=== PATIENT | female | born 1995 | race Caucasian/White ===

== ENCOUNTER 2021-01-22 16:48 | Emergency (ER) | payer MEDICAID, SELFPAY ==
[2021-01-22 17:35] VITALS: BP 130/72; PULSE 88; RESP 24; TEMP 37; O2SAT 96; BMI 67.8
--- NOTE | 2021-01-22 18:24 | HMH.EDUTC ---
[facility] Disposition Clinical Impression: Sinusitis Qualifiers: Sinusitis location: unspecified location Chronicity: unspecified Qualified Code(s): J32.9 - Chronic sinusitis, unspecified Disposition: Home, Self-Care Condition on Discharge: Good Instructions: Sinusitis, DI for Sinusitis, Amoxicillin and Clavulanic Acid Additional Instructions: *Monitor Temp, Over the counter Motrin or Tylenol as directed/as needed Tylenol every 4 hours and Motrin every 6 hours (as long as your family doctor has told you that you can take it) for fever or pain. and straight to ER if unable to lower temp less than 101.0 after medication given *Warm salt water gargles may help to soothe the throat *Throat Lozenges *Warm fluids like tea with honey may help to soothe the throat *Sleep elevated *Humidifier/Vaporizer *Flonase 2 sprays in each nostril daily but be aware that it may take 2-3 days before you notice improvement *Bromfed may cause drowsiness. Know how it effects you (your child) before driving, caring for small child, or sending your child to school. Not other antihistamines/allergy medications while taking bromfed Your throat swab was sent for culture. Those results are typically sent to your primary care. Be sure to follow up in 2-3 days with your family doctor/primary care physician if no improvement so they can review those result and treat if necessary. If you don?t have a primary care doctor, I recommend you get one but in the mean time, you will have to return to a walk in clinic Follow up IMMEDIATELY for new or worsening symptoms or no Noticeable improvement over the next 48-72 hours. 911 for difficulty breathing or swallowing Prescriptions: Amoxicillin/Potassium Clav [Augmentin 875-125 Tablet] 1 tab PO Q12H 7 Days #14 tab Transmission Status: Pending to [facility] Benzonatate [Benzonatate 100mg cap] 100 mg PO TID PRN #15 cap PRN Reason: Cough Transmission Status: Pending to [facility] methylPREDNISolone [Medrol 4mg tab] 4 mg PO DIRECTED #21 tab Transmission Status: Pending to [facility] Referrals: Provider,Referral, [Primary Care Provider] - As needed Time of Disposition: 18:53 Medical Decision Making - Aditya Inquiry Pt receiving controlled substance: No Aditya was queried for this patient: No Vital Signs: 01/22/21 17:35 Temperature 98.6 F Temperature Source Oral Pulse Rate [Right] 88 Respiratory Rate 24 Blood Pressure [Right Arm] 130/72 Blood Pressure Mean [Right Arm] 91 Blood Pressure Source [Right Arm] Automatic Cuff Blood Pressure Position [Right Arm] Sitting 02 Sat by Pulse Oximetry 96 Oxygen Delivery Method Room Air Medical Decision Narrative: Patient states that she has taken augmentin and steriods in the past without complication or reactions [facility] HPI - General Stated complaint: Cough,congestionb runny noser Time Seen by Provider: 01/22/21 18:24 Mode of Arrival: Ambulatory Source of Information: Patient Limitations: No Limitations Description of Symptoms (Recalled from Triage Doc. by RN): PATIENT C/O COUGH, RUNNY NOSE AND NASAL CONGESTION SINCE YESTERDAY HEENT Symptoms (Recalled from RN notes): Yes Resp Symptoms (Recalled from RN notes): Yes Skin Symptoms (Recalled from RN notes): No MS Symptoms (Recalled from RN notes): No Functional Status (Recalled from RN notes): WNL - History of Present Illness Provider Complaint: Patient states that she has been having productive cough at times with sinus congestion and pressure that has contined to get worse since yesterday States that at times she is coughing it up and at times she is not States that today she was still not feeling well so she came in to get checked - Related Data Previous Rx's Medication Instructions Recorded Amoxicillin/Potassium Clav 1 tab PO Q12H 7 Days #14 tab 01/22/21 [Augmentin 875-125 Tablet] Benzonatate [Benzonatate 100mg 100 mg PO TID PRN #15 cap 01/22/21 cap] meth
[2021-01-22 18:58] VITALS: BP 130/72; PULSE 88; RESP 24; TEMP 37; O2SAT 96
== END 2021-01-22 19:03 | disposition home or self-care (01) ==
PROVIDERS: Emergency Provider Nurse Practitioner
DX: J32.9 Chronic sinusitis, unspecified (principal)
CPT/HCPCS: 99202; G0463

== ENCOUNTER 2021-03-18 10:15 | Emergency (ER) | payer MEDICAID, SELFPAY ==
[2021-03-18 11:35] VITALS: BP 145/90; PULSE 125; RESP 22; TEMP 37.4; O2SAT 97; BMI 65.9
[2021-03-18 12:02] LABS: UTC Influenza A Antigen Negative (Negative)
[2021-03-18 12:03] LABS: UTC Influenza B Antigen Negative (Negative)
--- NOTE | 2021-03-18 12:13 | HMH.EDUTC ---
[facility] [place] Clinical Impression: Nausea & vomiting Qualifiers: Vomiting type: unspecified Qualified Code(s): R11.2 - Nausea with vomiting, unspecified Disposition: Home, Self-Care Condition on Discharge: Good Instructions: Nausea and Vomiting-Adult, Ondansetron Additional Instructions: Drink extra fluids with and between meals. If you have difficulty drinking, try very small amounts of water or suck on ice chips. ? Avoid fruit juices, as these do not replace minerals and can actually increase diarrhea. ? Children and adults can use sports drinks to replenish electrolytes. Younger children and infants should use products formulated for children, like oral rehydration solutions. ? Eat food in small amounts and let your stomach recover. ? Get lots of rest. You may feel tired or weak. ? No greasy or fried foods for the next 24-48 hours BRAT diet Bananas Rice Apples and [place] ? Make sure to drink plenty of liquids ? Return if needed ? Straight to ER if any life threatening symptoms ? Zofran as prescribed If your abdominal pain returns or worsens follow up with Family Doctor or go straight to ER ? Follow up with family doctor in the next 48-72 hours if no improvement or any worsening of symptoms You were tested for today for COVID19 your test result should be back in the next 24-48 hours, you may check your results on the [facility] if you have trouble logging on you may call You was given a handout with instructions for Self Quarantine and Self isolation for while you wait on test results and what to do if they are positive If you are positive the Health Dept will be contacting you also Make sure to take your Vitamins Vit. C Vit D and Zinc if you can take them Prescriptions: Ondansetron [Zofran 4mg ODT] 4 mg PO TIDP PRN #12 tab PRN Reason: Nausea And Vomiting [facility] Referrals: Provider,Referral, MD [Primary Care Provider] - Forms: Work/School Release Time of Disposition: 13:26 Medical Decision Making - Aditya Inquiry Pt receiving controlled substance: No Aditya was queried for this patient: No Vital Signs: 03/18/21 11:35 Temperature 99.4 F Temperature Source Oral Pulse Rate [Right Brachial] 125 H Respiratory Rate 22 Blood Pressure [Right Arm] 145/90 H Blood Pressure Mean [Right Arm] 108 Blood Pressure Source [Right Arm] Automatic Cuff Blood Pressure Position [Right Arm] Sitting 02 Sat by Pulse Oximetry 97 Oxygen Delivery Method Room Air - Lab Data Lab results reviewed: Yes: I reviewed the patient's lab results. Lab Results 03/18/21 11:53: Influenza Type A Ag Negative, Influenza Type B Ag Negative Orders (Tests/Meds): ED MEDICATIONS Discontinued Medications Generic Name Dose Route Start Last Admin Trade Name Freq PRN Reason Stop Dose Admin Ondansetron HCl 4 mg 03/18/21 12:19 03/18/21 12:24 Ondansetron 4mg Odt SL 03/18/21 12:20 4 mg ONCE ONE Administration ORDERS Category Date Time Status Covid-19 Nasal PCR ([facility]) Routine Lab 03/18/21 11:53 Received Medical Decision Narrative: Patient states that medication helped with nausea Still denies pain in abdomen at this time Patient educated that if pain in abdomen returned or worsened go straight to the ER and patient agreed [facility] [place] HPI - General Stated complaint: covid symptoms/vomiting Time Seen by Provider: 03/18/21 12:13 Mode of Arrival: Ambulatory Source of Information: Patient Limitations: No Limitations Description of Symptoms (Recalled from Triage Doc. by RN): PATIENT C/O STOMACH PAIN, VOMITING, NAUSEA, BODY ACHES AND COUGH X 2 DAYS HEENT Symptoms (Recalled from RN notes): No Resp Symptoms (Recalled from RN notes): No Skin Symptoms (Recalled from RN notes): No MS Symptoms (Recalled from RN notes): No Functional Status (Recalled from RN notes): WNL - History of Present Illness Provider Complaint: Patient state that she woke up this morning with body ach
[2021-03-18 13:25] VITALS: BP 145/90; PULSE 107; RESP 22; TEMP 37.4; O2SAT 97
[2021-03-18 21:38] LABS: Apearance,Urine Turbid (Clear); Color,Urine Dark Yellow (Yellow); Glucose,Urine (UA) Negative (Negative); Ketones,Urine 15 (Negative); Protein,Urine Negative (Negative); Specific Gravity, Urine 1.025 (1.005-1.030)
[2021-03-18 21:39] LABS: Bilirubin,Urine Negative (Negative); Blood, Urine 2+ (Negative); UTC Leukocyte Esterase,Urine Negative (Negative); UTC Nitrate,Urine Negative (Negative); Urobilinogen,Urine 0.2 EU/dl (0.2)
== END 2021-03-18 13:30 | disposition home or self-care (01) ==
PROVIDERS: Emergency Provider Nurse Practitioner
DX: U07.1 COVID-19 (principal)
CPT/HCPCS: 81003; 87804; 99202; C9803; G0463; U0003; U0005

== ENCOUNTER → 2022-10-13 23:35 | Outpatient (CLI) | payer MEDICAID, SELFPAY ==
[2022-10-13 18:35] LABS: Basophils % 0.4 % (0.1-2.0); Eosinophils # 0.3 K/mm3 (0.0-0.4); Eosinophils % 3.4 % (0.1-12.0); Hematocrit 43.7 % (37.0-47.0); Hemoglobin 13.5 g/dL (12.2-16.2); Lymphocytes # 1.8 K/mm3 (0.7-4.5); Lymphocytes % 24.5 % (10-50); Mean Corpuscular HGB Conc 30.8 g/dL (31.8-35.4); Mean Corpuscular Hemoglobin 27.6 pg (27.0-31.2); Mean Corpuscular Volume 89.3 fl (81-99); Mean Platelet Volume 9.6 fl (7.4-10.4); Monocytes # 0.5 K/mm3 (0.1-1.0); Monocytes % 6.1 % (1.7-9.3); Neutrophils # 4.9 K/mm3 (1.8-7.8); Neutrophils % 65.6 % (37.0-80.0); Platelet Count 310 K/mm3 (142-424); Red Blood Count 4.89 M/mm3 (4.20-5.40); Red Cell Distribution Width 13.8 % (11.5-17.5); White Blood Count 7.5 K/mm3 (4.8-10.8)
[2022-10-13 18:56] LABS: Alanine Aminotransferase 111 U/L (12-78); Albumin Level 3.7 g/dl (3.5-5.0); Albumin/Globulin Ratio 1.2 (1.1-1.8); Alkaline Phosphatase 212 U/L (38-126); Amylase 45 U/L (30-110); Anion Gap 10.2 mEq/L (5-15); Aspartate Amino Transferase 130 U/L (14-36); Bilirubin,Total 0.5 mg/dl (0.2-1.3); Blood Urea Nitrogen 11 mg/dl (7-17); Calcium 8.8 mg/dl (8.4-10.2); Carbon Dioxide 23 mmol/L (22.0-30.0); Chloride 111 mmol/L (98-107); Chol/HDL Ratio 4.4 (1-3.5); Cholesterol 206 mg/dl (140-200); Estimated Glomerular Filt Rate 118 ml/min (>60); GFR (African American) 143 ML/MIN (>60); Globulin 3.1 g/dL (1.3-3.2); Glucose 83 mg/dl (74-100); HDL Cholesterol 47 mg/dl (40-60); Lipase 52 U/L (23-300); Potassium 4.2 mmoL/L (3.5-5.1); Sodium 140 mmol/L (136-145); Total Protein,Serum 6.8 g/dl (6.3-8.2); Triglycerides 119 mg/dl (30-150); VLDL Cholesterol 24 mg/dL (0-40)
[2022-10-13 19:07] LABS: Direct LDL Cholesterol 128.93 mg/dL (100-129)
[2022-10-13 19:13] LABS: T4 (Thyroxine) 11.1 ug/dl (5.53-11.0)
[2022-10-13 19:26] LABS: Thyroid Stimulating Hormone 4.75 uIU/mL (0.465-4.68)
== END ==
LOC: LAB.DROPOF 23:36
PROVIDERS: PCP Emergency Medicine; Visit Provider Emergency Medicine
DX: R10.11 Right upper quadrant pain (principal); R11.2 Nausea with vomiting, unspecified; Z76.89 Persons encountering health services in other specified circumstances
CPT/HCPCS: 80053; 80061; 82150; 83036; 83690; 84436; 84443; 85025

== ENCOUNTER → 2022-10-15 07:09 | Outpatient (CLI) | payer MEDICAID, SELFPAY ==
--- NOTE | 2022-10-15 07:12 | US_ITS ---
FINAL REPORT TECHNIQUE: Multiple transverse and longitudinal images CLINICAL HISTORY: abdominal pain COMPARISON: None FINDINGS: The gallbladder shows gallstones. There is focal dilatation of the common hepatic duct but no evidence of intrahepatic ductal dilatation. No significant wall thickening or pericholecystic fluid is seen. Limited portions of the right liver are unremarkable. Limited portions of the right kidney are unremarkable. IMPRESSION: Cholelithiasis. Extrahepatic duct dilatation, consider MRCP for further evaluation. Reviewed, Interpreted and Dictated by Lemuel Pablo MD Transcribed by Mary Forbes Authenticated and [facility]
[2022-10-16 08:16] LABS: HBsAg Screen Negative (Negative); HCV Ab Non Reactive (Non Reactive); Hep A Ab, IGM Negative (Negative); Hep B Core Ab, IgM Negative (Negative)
== END ==
PROVIDERS: PCP Emergency Medicine; Visit Provider Emergency Medicine
DX: R11.2 Nausea with vomiting, unspecified (principal); R10.9 Unspecified abdominal pain; E66.9 Obesity, unspecified; Z68.44 Body mass index [BMI] 60.0-69.9, adult
CPT/HCPCS: 36415; 76705; 80074

== ENCOUNTER 2022-10-25 22:03 | Emergency (ER) | payer MEDICAID, SELFPAY ==
--- NOTE | 2022-10-25 22:03 | ECG_ITS ---
APPROVED REPORT Exam: Resting ECG HR:121 bpm ECG Measurements Heart Rate 121 AXES OH 163 P 69 QRSd 87 QRS 63 QT 423 T 71 QTc 495 Conclusion SINUS TACHYCARDIA NONSPECIFIC T-WAVE ABNORMALITY ABNORMAL RHYTHM ECG UNCONFIRMED REPORT Electronically signed by : Carlos Vallejo MD 10/26/2022 20:47:16
[2022-10-25 22:04] VITALS: BP 136/97; PULSE 121; RESP 22; TEMP 37; O2SAT 100; BMI 65.9
--- NOTE | 2022-10-25 22:10 | HMH.EDGENADL ---
Discharge Plan Disposition Patient Disposition: Still a Patient Condition: Fair Prescriptions Prescriptions: No Action No Known Home Medications Clinical Impressions Clinical Impression: Choledocholithiasis Instructions Patient Instructions: DI for Acute Abdominal Pain Discharge ED Provider: Luz Swann General Adult HPI <Grisel Rodriguez MD - Last Filed: 10/25/22 22:51> General Chief complaint: Abdominal Pain Stated complaint: abd pain Time Seen by Provider: 10/25/22 22:10 Mode of Arrival: Wheelchair Source of Information: Patient Limitations: No Limitations Description of Symptoms (Recalled from ER Triage Doc. by RN): 27 F presents from home with c/o epigastric pain that radiates up her chest and to her upper back. Patient reports being diagnosed with gallstones last week with her PCP, Dr. Montana, and is scheduled to have an MRI of her stomach this week. Patient reports the pain began this evening approximately 2029 and has gotten more severe as time progressed. Patient has nausea and vomited twice [employer]. History of Present Illness HPI narrative: Patient has a PMHx significant for gallstones, obesity, hypothyroidism who presents to the ED with complaints of abdominal pain and chest pain. Patient reports to the ED with complaints of epigastric and right upper quadrant abdominal pain that radiates up into her chest and into her back. Patient notes that she was diagnosed with gallstones last week with her PCP, Dr. Montana, and is scheduled to have an MRI of her abdomen done this week. Patient notes that the pain had sudden onset around 8:30 PM and has progressively worsened since then. Patient endorses nausea vomiting x2, all nonbloody. Patient describes the abdominal pain as a stabbing, squeezing sensation. Patient also notes that her chest pain is more of a sharp pain and she has mild shortness of breath associated with it. Related Data Home Medications Medication Instructions Recorded Confirmed No Known Home Medications 10/25/22 10/25/22 Allergies Allergy/AdvReac Type Severity Reaction Status Date / Time cephalexin [From Keflex] Allergy Verified 10/13/22 15:20 erythromycin base Allergy Verified 10/13/22 15:20 PFS <Grisel Rodriguez MD - Last Filed: 10/25/22 22:51> [facility] Disclaimer: The information contained in this section may have been updated after the patient was seen, as this information can be updated by other users. Medical History Cholelithiasis Hypothyroidism Obesity Surgical History H/O wisdom tooth extraction H/O: Social History Smoking Status: Never smoker alcohol intake: never substance use type: denies use current occupational status: unemployed Travel in the last 8 weeks: None <Grisel Rodriguez MD - Last Filed: 10/25/22 22:51> ROS Obtained: Yes All systems reviewed & no additional complaints except as documented Physical Exam <Grisel Rodriguez MD - Last Filed: 10/25/22 22:51> General General appearance: alert, in distress and obese Head Head exam: atraumatic, normocephalic and normal inspection Eye Eye exam: Present normal appearance, PERRL and EOMI; Absent scleral icterus or nystagmus ENT ENT exam: Present normal exam, mucous membranes moist and normal external ear exam Neck Neck exam: Present normal inspection, full ROM and trachea midline Chest Chest inspection: Present normal inspection and symmetric chest wall rise; Absent tenderness Respiratory Respiratory exam: Present normal lung sounds bilaterally; Absent respiratory distress, wheezes or accessory muscle use Cardiovascular Cardiovascular exam: Present regular rate, normal rhythm and normal heart sounds Abdominal Exam Abdominal exam: Present soft and tenderness (TTP in epigastrium and RUQ); Absent distention, guardin
[2022-10-25 22:30] LABS: Basophils % 0.2 % (0.1-2.0); Eosinophils # 0.2 K/mm3 (0.0-0.4); Eosinophils % 1.6 % (0.1-12.0); Hematocrit 44.3 % (37.0-47.0); Hemoglobin 14.1 g/dL (12.2-16.2); Lymphocytes # 0.9 K/mm3 (0.7-4.5); Lymphocytes % 7.6 % (10-50); Mean Corpuscular HGB Conc 31.8 g/dL (31.8-35.4); Mean Corpuscular Hemoglobin 28.5 pg (27.0-31.2); Mean Corpuscular Volume 89.8 fl (81-99); Mean Platelet Volume 8.7 fl (7.4-10.4); Monocytes # 0.2 K/mm3 (0.1-1.0); Neutrophils # 10.6 K/mm3 (1.8-7.8); Neutrophils % 88.7 % (37.0-80.0); Platelet Count 352 K/mm3 (142-424); Red Blood Count 4.94 M/mm3 (4.20-5.40); Red Cell Distribution Width 14.1 % (11.5-17.5); White Blood Count 11.9 K/mm3 (4.8-10.8)
[2022-10-25 22:34] LABS: MANUAL DIFFERENTIAL MANUAL DIFFERENTIAL (MANUAL DIFF)
[2022-10-25 22:38] LABS: Alanine Aminotransferase 326 U/L (12-78); Albumin Level 4.5 g/dl (3.5-5.0); Alkaline Phosphatase 506 U/L (38-126); Anion Gap 13.1 mEq/L (5-15); Aspartate Amino Transferase 527 U/L (14-36); Bilirubin,Total 4.3 mg/dl (0.2-1.3); Blood Urea Nitrogen 12 mg/dl (7-17); Calcium 9.1 mg/dl (8.4-10.2); Carbon Dioxide 27 mmol/L (22.0-30.0); Chloride 106 mmol/L (98-107); Creatinine Clearance Estimated 128 mL/min (50-200); Estimated Glomerular Filt Rate 99 ml/min (>60); GFR (African American) 120 ML/MIN (>60); Globulin 4.3 g/dL (1.3-3.2); Glucose 110 mg/dl (74-100); HCG Qualitative, Serum Negative (Negative); Lactic Acid 1.5 mmol/L (0.7-2.1); Lipase 63 U/L (23-300); Potassium 4.1 mmoL/L (3.5-5.1); Sodium 142 mmol/L (136-145); Total Protein,Serum 8.8 g/dl (6.3-8.2)
[2022-10-25 22:42] LABS: D-Dimer 1.05 ug/mL (0.0-0.5)
[2022-10-25 22:59] LABS: Troponin I < 0.01 ng/ml (0.00-0.034)
--- NOTE | 2022-10-25 23:03 | PC.NURSE ---
Attempted IV access via US. Successfully placed 20G in the left AC but while securing line, the vein blew. Notified MD who is at bedside at this time attempting access.
--- NOTE | 2022-10-25 23:03 | PC.NURSE ---
Dr. Swann at BS to attempt u/s guided IV
[2022-10-25 23:14] LABS: Eosinophils % 2 % (0-3); Lymphocytes % 9 % (10-50); Monocytes % 1 % (2-9); Neutrophils % 88 % (42-76); Platelet Estimate Normal; RBC Morphology Normal; Total Cells Counted 100
--- NOTE | 2022-10-25 23:40 | CT_ITS ---
PROCEDURE INFORMATION: Exam: CTA Chest With Contrast Exam date and time: 10/25/2022 11:53 PM Age: 27 years old Clinical indication: Abnormal findings; Abnormal diagnostic tests; Elevated d-dimer; Additional info: Chest pain, + d dimer TECHNIQUE: Imaging protocol: Computed tomographic angiography of the chest with contrast. Exam focused on the arteries. 3D rendering (Not supervised by radiologist): MIP and/or 3D reconstructed images were created by the technologist. Radiation optimization: All CT scans at this facility use at least one of these dose optimization techniques: automated exposure control; mA and/or kV adjustment per patient size (includes targeted exams where dose is matched to clinical indication); or iterative reconstruction. Contrast material: ISOVUE; Contrast volume: 80 ml; Contrast route: INTRAVENOUS (IV); REPORTING DATA: Count of CT and Cardiac NM exams in prior 12 months: This patient has received 0 known CTs and 0 known cardiac nuclear medicine studies in the 12 months prior to the current study. COMPARISON: US GALLBLADDER 10/15/2022 7:13 AM FINDINGS: Pulmonary arteries: Normal. No pulmonary emboli. Aorta: Unremarkable. No aortic aneurysm. No aortic dissection. Lungs: Unremarkable. No consolidation. No masses. Pleural spaces: Unremarkable. No pneumothorax. No pleural effusion. Heart: Unremarkable. No cardiomegaly. No pericardial effusion. Lymph nodes: Unremarkable. No enlarged lymph nodes. Gallbladder and bile ducts: Partially visualized gallbladder distention. Bones/joints: Unremarkable. No acute fracture. Soft tissues: Unremarkable. IMPRESSION: No acute findings.
--- NOTE | 2022-10-25 23:40 | CT_ITS ---
PROCEDURE INFORMATION: Exam: CT Abdomen And Pelvis With Contrast Exam date and time: 10/25/2022 11:53 PM Age: 27 years old Clinical indication: Abdominal pain; Prior surgery; Surgery date: 6+ months; Surgery type: C section; Additional info: Upper abd pain, vomiting TECHNIQUE: Imaging protocol: Computed tomography of the abdomen and pelvis with contrast. Radiation optimization: All CT scans at this facility use at least one of these dose optimization techniques: automated exposure control; mA and/or kV adjustment per patient size (includes targeted exams where dose is matched to clinical indication); or iterative reconstruction. Contrast material: ISOVUE; Contrast volume: 75 ml; Contrast route: IV; REPORTING DATA: Count of CT and Cardiac NM exams in prior 12 months: This patient has received 0 known CTs and 0 known cardiac nuclear medicine studies in the 12 months prior to the current study. COMPARISON: US GALLBLADDER 10/15/2022 7:13 AM FINDINGS: Liver: Normal. No mass. Gallbladder and bile ducts: There is moderate intra and extrahepatic biliary ductal dilatation, the common bile duct measures up to 2 cm. There is an ill-defined solid defect within distal common bile duct (image 45 series 4). Gallbladder is well distended. Pancreas: Normal. No ductal dilation. Spleen: The spleen is enlarged measuring 16.8 cm in greatest AP dimension. Adrenal glands: Normal. No mass. Kidneys and ureters: Normal. No hydronephrosis. Stomach and bowel: Unremarkable. No obstruction. No mucosal thickening. Appendix: No evidence of appendicitis. Intraperitoneal space: Unremarkable. No free air. No significant fluid collection. Vasculature: Unremarkable. No abdominal aortic aneurysm. Lymph nodes: Unremarkable. No enlarged lymph nodes. Urinary bladder: Unremarkable as visualized. Reproductive: Unremarkable as visualized. Bones/joints: Unremarkable. No acute fracture. Soft tissues: Unremarkable. IMPRESSION: 1. Biliary obstruction with presumed gallstone in the distal common bile duct. Further evaluation with ERCP/MRCP may be appropriate. 2. Mild splenomegaly.
--- NOTE | 2022-10-25 23:40 | PC.NURSE ---
Patient is extremely difficult IV stick. Multiple attempts with and without ultrasound with Attending's help.
--- NOTE | 2022-10-25 23:45 | PC.NURSE ---
Pt gone to RAD via wheelchair
--- NOTE | 2022-10-25 23:58 | PC.NURSE ---
Pt returned from RAD
--- NOTE | 2022-10-26 | XR_ITS ---
PROCEDURE INFORMATION: Exam: XR Chest Exam date and time: 10/26/2022 12:06 AM Age: 27 years old Clinical indication: Sternal or substernal pain; Additional info: Cp TECHNIQUE: Imaging protocol: Radiologic exam of the chest. Views: 1 view. COMPARISON: CT ANGIO CHEST PE PROTOCOL 10/25/2022 11:53 PM FINDINGS: Lungs: No acute findings or consolidation. Pleural spaces: No pleural effusion. No pneumothorax. Heart/Mediastinum: No acute findings or cardiomegaly. Bones/joints: No acute findings. IMPRESSION: No acute cardiopulmonary findings.
[2022-10-26 00:07] VITALS: BP 150/97; PULSE 117; O2SAT 93
--- NOTE | 2022-10-26 00:09 | PC.NURSE ---
RAD at for CXR
--- NOTE | 2022-10-26 00:20 | PC.NURSE ---
speaking with Dr. Payne
--- NOTE | 2022-10-26 00:24 | PC.NURSE ---
waiting for return call from [facility]
--- NOTE | 2022-10-26 00:32 | PC.NURSE ---
Pt accepted to [facility] by Dr. Tim
--- NOTE | 2022-10-26 00:54 | PC.NURSE ---
Notified EMS of transfer
--- NOTE | 2022-10-26 00:58 | PC.NURSE ---
Report to CORKY Diaz at [facility]. Awaiting EMS transport
[2022-10-26 01:21] VITALS: BP 143/79; PULSE 118; RESP 19; TEMP 37; O2SAT 99
== END 2022-10-26 01:23 | disposition short-term general hospital (02) ==
PROVIDERS: Emergency Medicine; Emergency Provider Emergency Medicine; PCP Emergency Medicine
DX: R10.13 Epigastric pain (principal); K80.20 Calculus of gallbladder without cholecystitis without obstruction; R07.9 Chest pain, unspecified; E66.9 Obesity, unspecified; E03.9 Hypothyroidism, unspecified
CPT/HCPCS: 71045; 71275; 74177; 80053; 83605; 83690; 84484; 84703; 85007; 85025; 85378; 87040; 87077; 87186; 93005; 96361; 96372; 96374; 96375; 99291; J2405; J2543; Q9967

== ENCOUNTER 2023-03-12 20:02 | Observation (INO) | payer MEDICAID, SELFPAY ==
[2023-03-12] VITALS (10 sets, daily range): BP systolic 118–154; BP diastolic 66–103; PULSE 122–159; RESP 13–30; TEMP 36.7–36.8; O2SAT 96–100; BMI 61.7; BMI 63.6
--- NOTE | 2023-03-12 20:09 | ECG_ITS ---
APPROVED REPORT Exam: Resting ECG HR:131 bpm ECG Measurements Heart Rate 131 AXES NJ 153 P 65 QRSd 80 QRS 57 QT 391 T 40 QTc 468 Conclusion SINUS TACHYCARDIA LOW QRS VOLTAGE IN PRECORDIAL LEADS [QRS DEFLECTION < 1.0 mV IN CHEST LEADS] NONSPECIFIC T-WAVE ABNORMALITY ABNORMAL RHYTHM ECG UNCONFIRMED REPORT Electronically signed by : Carlos Vallejo MD 03/16/2023 09:07:54
--- NOTE | 2023-03-12 20:09 | CT_ITS ---
PROCEDURE INFORMATION: Exam: CTA Chest With Contrast Exam date and time: 03/12/2023 8:59 PM Age: 27 years old Clinical indication: Shortness of breath; Additional info: Hr 145, SOB, cough TECHNIQUE: Imaging protocol: Computed tomographic angiography of the chest with contrast. Exam focused on the arteries. 3D rendering (Not supervised by radiologist): MIP and/or 3D reconstructed images were created by the technologist. Radiation optimization: All CT scans at this facility use at least one of these dose optimization techniques: automated exposure control; mA and/or kV adjustment per patient size (includes targeted exams where dose is matched to clinical indication); or iterative reconstruction. Contrast material: ISOVUE; Contrast volume: 75 ml; Contrast route: INTRAVENOUS (IV); REPORTING DATA: Count of CT and Cardiac NM exams in prior 12 months: This patient has received 2 known CTs and 0 known cardiac nuclear medicine studies in the 12 months prior to the current study. COMPARISON: CT ANGIO CHEST PE PROTOCOL 10/25/2022 11:53 PM FINDINGS: Limitations: Evaluation is limited by suboptimal bolus timing. Pulmonary arteries: No large pulmonary emboli. Aorta: No aortic aneurysm. No aortic dissection. Lungs: No consolidation. No masses. Pleural spaces: No pneumothorax. No pleural effusion. Heart: No cardiomegaly. No pericardial effusion. Lymph nodes: No enlarged lymph nodes. Gallbladder and bile ducts: The gallbladder is absent. No intra or extrahepatic biliary ductal dilation. Pneumobilia. Bones/joints: No acute fracture. Soft tissues: Unremarkable. IMPRESSION: 1. No large pulmonary embolism given limitations as above. 2. Other findings as above.
--- NOTE | 2023-03-12 20:15 | HMH.EDGENADL ---
Discharge Plan Disposition Patient Disposition: Home, Self-Care Clinical Impressions Clinical Impression: Sepsis, Acute lower respiratory infection Discharge ED Provider: Esvin Altamirano General Adult HPI General Chief complaint: Shortness of Breath/Dyspnea Stated complaint: cough, congestion Time Seen by Provider: 03/12/23 20:03 Mode of Arrival: Ambulatory Source of Information: Patient Limitations: No Limitations Description of Symptoms (Recalled from ER Triage Doc. by RN): 27YF with complaints of whezzing and chest congestion for the last weeks, accompained with a wet hacking cough and SOB. Patient states it has progressively gotten worse for the last 2 days. Patient denies any fevers. History of Present Illness HPI narrative: Patient is a 27-year-old female with past medical history of obesity, allergic to Keflex who presents emergency department for evaluation of cough, shortness of breath. Onset was subacute, over the last 2 weeks. It has gotten progressively worse over the last 48 hours. Due to significant shortness of breath she presents here for continued evaluation. Denies chest pain, has been afebrile throughout course. Adequate urine output. Related Data Home Medications Medication Instructions Recorded Confirmed etonogestrel 68 mg subdermal 1 implant subdermal . 03/12/23 03/12/23 implant (Nexplanon) Allergies Allergy/AdvReac Type Severity Reaction Status Date / Time cephalexin [From Keflex] Allergy Verified 11/18/22 09:28 erythromycin base Allergy Verified 11/18/22 09:28 [facility] Disclaimer: The information contained in this section may have been updated after the patient was seen, as this information can be updated by other users. Medical History Cholelithiasis Hypothyroidism Obesity Surgical History H/O wisdom tooth extraction H/O: 2019 Hx laparoscopic cholecystectomy Social History Smoking Status: Never smoker alcohol intake: never substance use type: denies use current occupational status: unemployed Travel in the last 8 weeks: None ROS Obtained: Yes Systems reviewed as appropriate & no additional complaints except as documented Physical Exam General General appearance: alert and in no apparent distress Head Head exam: atraumatic and normocephalic Eye Eye exam: Present PERRL and EOMI ENT ENT exam: Present mucous membranes moist Neck Neck exam: Present normal inspection Chest Chest inspection: Present normal inspection and symmetric chest wall rise Respiratory Respiratory exam: Present respiratory distress, wheezes, prolonged expiratory phase and other (Significant rhonchi posterior lung yu) Cardiovascular Cardiovascular exam: Present normal rhythm and tachycardia Abdominal Exam Abdominal exam: Present soft; Absent tenderness Extremities Exam Extremities exam: Present normal inspection Neurological Exam Neurological exam: Present alert Psychiatric Psychiatric exam: Present normal affect Skin Skin exam: Present warm and dry Medical Decision Making Aditya Inquiry Pt receiving controlled substance: No Vital Signs: 03/12/23 20:03 03/12/23 20:28 03/12/23 20:25 Temperature 98.3 F Temperature Source Oral Pulse Rate 142 H 130 H Pulse Rate [Left Radial] 159 H Respiratory Rate 30 H 22 Blood Pressure 154/103 H Blood Pressure [Right Arm] 154/103 H Blood Pressure Mean [Right Arm] 120 02 Sat by Pulse Oximetry 97 Oxygen Delivery Method Room Air 03/12/23 20:59 03/12/23 20:07 03/12/23 21:30 Temperature Temperature Source Pulse Rate 131 H 143 H 122 H Pulse Rate [Left Radial] Respiratory Rate 13 14 Blood Pressure 154/103 H 125/77 Blood Pressure [Right Arm] Blood Pressure Mean [Right Arm] 02 Sat by Pulse Oximetry 97 100 O
--- NOTE | 2023-03-12 20:19 | XR_ITS ---
PROCEDURE INFORMATION: Exam: XR Chest Exam date and time: 03/12/2023 8:17 PM Age: 27 years old Clinical indication: Shortness of breath; Additional info: SOB, tachy TECHNIQUE: Imaging protocol: Radiologic exam of the chest. Views: 1 view. COMPARISON: CR XR CHEST PORTABLE 10/26/2022 12:06 AM FINDINGS: Lungs: No consolidation. Pleural spaces: No pleural effusion. No pneumothorax. Heart/Mediastinum: No cardiomegaly. Bones/joints: Unremarkable. IMPRESSION: No acute findings.
[2023-03-12 20:29] LABS: Coronavirus 19, PCR Not Detected (NotDetected); Influenza A, PCR Not Detected (NotDetected); Influenza B, PCR Not Detected (NotDetected)
[2023-03-12 20:29] LABS: Basophils # 0.1 K/mm3 (0-0.2); Basophils % 0.6 % (0.1-2.0); Eosinophils # 0.7 K/mm3 (0.0-0.4); Eosinophils % 6.1 % (0.1-12.0); Hematocrit 44.7 % (37.0-47.0); Hemoglobin 14.2 g/dL (12.2-16.2); Lymphocytes # 2.8 K/mm3 (0.7-4.5); Lymphocytes % 24.9 % (10-50); Mean Corpuscular HGB Conc 31.7 g/dL (31.8-35.4); Mean Corpuscular Hemoglobin 27.9 pg (27.0-31.2); Mean Corpuscular Volume 87.8 fl (81-99); Mean Platelet Volume 8.7 fl (7.4-10.4); Monocytes # 0.5 K/mm3 (0.1-1.0); Monocytes % 4.7 % (1.7-9.3); Neutrophils # 7.3 K/mm3 (1.8-7.8); Neutrophils % 63.7 % (37.0-80.0); Platelet Count 397 K/mm3 (142-424); Red Blood Count 5.09 M/mm3 (4.20-5.40); White Blood Count 11.4 K/mm3 (4.8-10.8)
--- NOTE | 2023-03-12 20:30 | PC.NURSE ---
Dr. Altamirano on phone with pharmacy regarding antibiotic allergy to Cephalexin and patient needing Rocephin. Dr. Altamirano ordered Rocephin will monitor for adverse reactions
[2023-03-12 20:33] LABS: VBG Base Excess -3.9 mmol/L (-2.4-2.3); VBG Oxygen Saturation 69.4 % (50-70); VBG PCO2 35.3 mmol/L (35-51); VBG PH 7.39 mmol/L (7.31-7.41); VBG PO2 35.5 mmol/L (28-40); VBG Total CO2 22.1 mmol/L (23-27)
[2023-03-12 20:33] LABS: Alanine Aminotransferase 30 U/L (12-78); Albumin Level 4.2 g/dl (3.5-5.0); Albumin/Globulin Ratio 1.1 (1.1-1.8); Alkaline Phosphatase 82 U/L (38-126); Aspartate Amino Transferase 41 U/L (14-36); Bilirubin,Total 0.4 mg/dl (0.2-1.3); Blood Urea Nitrogen 12 mg/dl (7-17); Calcium 8.5 mg/dl (8.4-10.2); Carbon Dioxide 22 mmol/L (22.0-30.0); Chloride 107 mmol/L (98-107); Creatinine Clearance Estimated 112 mL/min (50-200); Estimated Glomerular Filt Rate 85 ml/min (>60); GFR (African American) 103 ML/MIN (>60); Globulin 3.8 g/dL (1.3-3.2); Glucose 118 mg/dl (74-100); Potassium 3.5 mmoL/L (3.5-5.1)
[2023-03-12 20:37] LABS: HCG Qualitative, Serum Negative (Negative)
[2023-03-12 20:38] LABS: Lactic Acid 2.8 mmol/L (0.7-2.1)
[2023-03-12 20:43] LABS: Anion Gap 12.5 mEq/L (5-15); Sodium 138 mmol/L (136-145)
[2023-03-12 20:45] LABS: NT Pro Brain Natriuretic Pep. < 20.0 pg/mL (0-125); Troponin I < 0.01 ng/ml (0.00-0.034)
--- NOTE | 2023-03-12 20:56 | PC.NURSE ---
patient gone to CT at this time.
--- NOTE | 2023-03-12 21:05 | PC.NURSE ---
pt returned from ct scan
[2023-03-12 21:43] LABS: Lipase 103 U/L (23-300)
--- NOTE | 2023-03-12 21:58 | PC.NURSE ---
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
--- NOTE | 2023-03-12 22:00 | PC.WOUNDNOTE ---
pt admitted to hospitalist room 213
--- NOTE | 2023-03-12 22:04 | EXP.HP ---
History of Present Illness *Admission Date: 03/12/23 *Reason for visit:: SOA *History of present illness: This is a 27-year-old female with past medical history of morbid obesity, who presented to the emergency department for evaluation of cough, shortness of breath. Onset was subacute, over the last 2 weeks. It has gotten progressively worse over the last 48 hours. No fever. Stated that her son had diagnosed with RSV bronchitis recently. Due to significant shortness of breath she presents here for continued evaluation. Denies chest pain, has been afebrile throughout course. Adequate urine output. Admitted for further work up and treatment. [facility] Disclaimer: The information contained in this section may have been updated after the patient was seen, as this information can be updated by other users. Medical History Cholelithiasis Hypothyroidism Obesity Surgical History H/O wisdom tooth extraction H/O: 2019 Hx laparoscopic cholecystectomy Family History (Updated 03/12/23 @ 23:45 by Connie Banerjee RN) Other Family history of cancer Family history of heart attack Social History (Updated 03/12/23 @ 23:46 by Connie Banerjee RN) Smoking Status: Never smoker alcohol intake: never substance use type: denies use current occupational status: unemployed Travel in the last 8 weeks: None Review of Systems Review of Systems Review of systems:: pertinent systems reviewed and negative unless documented below Meds Home Medications and Allergies Home Medications Medication Instructions Recorded Confirmed Type etonogestrel 68 mg subdermal 1 implant subdermal . 03/12/23 03/12/23 History implant (Nexplanon) New Prescriptions to Start Prescriptions: Allergies Allergy/AdvReac Type Severity Reaction Status Date / Time cephalexin [From Keflex] Allergy Verified 11/18/22 09:28 erythromycin base Allergy Verified 11/18/22 09:28 Exam Data for Last 24 hours Vital signs and Labs for Last 24 Hours: Temp Pulse Resp BP Pulse Ox O2 Del Method 98.3 F 122 H 14 125/77 100 Room Air 03/12/23 20:03 03/12/23 21:30 03/12/23 21:30 03/12/23 21:30 03/12/23 21:30 03/12/23 21:30 Laboratory Results - last 24 hr 03/12/23 20:13: WBC 11.4 H, RBC 5.09, Hgb 14.2, Hct 44.7, MCV 87.8, MCH 27.9, MCHC 31.7 L, RDW 14.0, Plt Count 397, MPV 8.7, Neut % (Auto) 63.7, Lymph % (Auto) 24.9, [place] % (Auto) 4.7, Eos % (Auto) 6.1, Baso % (Auto) 0.6, Neut # (Auto) 7.3, Lymph # (Auto) 2.8, [place] # (Auto) 0.5, Eos # (Auto) 0.7 H, Baso # (Auto) 0.1, Sodium 138, Potassium 3.5, Chloride 107, Carbon Dioxide 22, Anion Gap 12.5, BUN 12, Creatinine 0.80, Estimated Creat Clear 112, Estimated GFR 85, Est GFR ( Amer) 103, Glucose 118 H, Lactate 2.8 H, Calcium 8.5, Total Bilirubin 0.4, AST 41 H, ALT 30, Alkaline Phosphatase 82, Troponin I < 0.01, NT-Pro-B Natriuret Pep < 20.0, Total Protein 8.0, Albumin 4.2, Globulin 3.8 H, Albumin/Globulin Ratio 1.1, Lipase 103, Serum HCG, Qual Negative 03/12/23 20:24: SARS-CoV-2 (PCR) Not detected, Influenza A Untype (PCR) Not detected, Influenza Type B (PCR) Not detected 03/12/23 20:28: VBG pH 7.39, VBG pCO2 35.3, VBG pO2 35.5, VBG HCO3 21.0 L, VBG Total CO2 22.1 L, VBG O2 Saturation 69.4, VBG Base Excess -3.9 L I & O for Last 24 hours: Intake & Output 03/09/23 03/10/23 03/11/23 03/12/23 23:59 23:59 23:59 23:59 Weight 195.045 kg Constitutional Constitutional: mild distress, morbidly obese and cooperative *Routine HEENT Exam Head: Present normocephalic and atraumatic Eye: Present EOMI, PERRL and normal accommodation ENT: Present mucous membranes moist *Routine Neck Exam Neck: Present supple, full ROM and trachea midline *Routine Respiratory Exam Respiratory: Present decreased breath sounds, diminished air movement, normal respiratory effort and symm
--- NOTE | 2023-03-12 22:21 | PC.NURSE ---
Report given to CORKY Billings
[2023-03-12 23:17] LABS: Reflex Lactic Add Lactic Reflex
[2023-03-12 23:45] LABS: Lactic Acid Follow Up (RFLX 1) 3.9 mmol/L (0.7-2.1); Troponin I < 0.01 ng/ml (0.00-0.034)
[2023-03-13] VITALS (11 sets, daily range): BP systolic 104–134; BP diastolic 63–95; PULSE 81–120; RESP 17–19; TEMP 36.6–37.1; O2SAT 96–99; BMI 63.6
[2023-03-13 01:16] LABS: Reflex Lactic (2 hrs) Add Lactic Reflex
[2023-03-13 02:19] LABS: Lactic Acid Follow up (RFLX 2) 4.3 mmol/L (0.7-2.1)
[2023-03-13 02:37] LABS: Troponin I < 0.01 ng/ml (0.00-0.034)
[2023-03-13 04:12] LABS: Adenovirus,PCR Not Detected (NotDetected); Coronavirus 19, PCR Not Detected (NotDetected); Coronavirus 229E Not Detected (NotDetected); Coronavirus NL63 Not Detected (NotDetected); Coronavirus OC43 Not Detected (NotDetected); Coronovirus HKU1,PCR Not Detected (NotDetected); Human Metapneumovirus Not Detected (NotDetected); Influenza A, PCR Not Detected (NotDetected); Influenza AH1, 2009 Not Detected (NotDetected); Influenza AH1, PCR Not Detected (NotDetected); Influenza AH3,PCR Not Detected (NotDetected); Influenza B, PCR Not Detected (NotDetected); Parainfluenza 1, PCR Not Detected (NotDetected); Parainfluenza 2, PCR Not Detected (NotDetected); Parainfluenza 3, PCR Not Detected (NotDetected); Parainfluenza 4, PCR Not Detected (NotDetected); Respiratory Syncytial Virus Not Detected (NotDetected)
[2023-03-13 05:10] LABS: T4 (Thyroxine) 9.6 ug/dl (5.53-11.0)
[2023-03-13 05:24] LABS: Thyroid Stimulating Hormone 2.12 uIU/mL (0.465-4.68)
[2023-03-13 05:33] LABS: Rhinovirus/Enterovirus Detected (NotDetected)
--- NOTE | 2023-03-13 06:07 | PC.NURSE ---
Since arriving to the floor the patient has been able to rest. States her coughing is better since the ER. Patient remains tachy on the monitor in the 120s and will increase to the 150s when up and moving then go back down upon rest. The patient resp panel is positive for Rhino/ Entero so was placed in droplet precautions. She is on RA and AxO
[2023-03-13 07:58] LABS: Basophils % 0.2 % (0.1-2.0); Eosinophils # 0.2 K/mm3 (0.0-0.4); Eosinophils % 1.6 % (0.1-12.0); Hemoglobin 13.1 g/dL (12.2-16.2); Lymphocytes # 0.9 K/mm3 (0.7-4.5); Lymphocytes % 8.8 % (10-50); Mean Corpuscular HGB Conc 32.8 g/dL (31.8-35.4); Mean Corpuscular Hemoglobin 28.2 pg (27.0-31.2); Mean Corpuscular Volume 85.9 fl (81-99); Mean Platelet Volume 8.8 fl (7.4-10.4); Monocytes # 0.1 K/mm3 (0.1-1.0); Monocytes % 0.8 % (1.7-9.3); Neutrophils # 8.7 K/mm3 (1.8-7.8); Neutrophils % 88.6 % (37.0-80.0); Platelet Count 318 K/mm3 (142-424); Red Blood Count 4.66 M/mm3 (4.20-5.40); White Blood Count 9.8 K/mm3 (4.8-10.8)
[2023-03-13 08:04] LABS: MANUAL DIFFERENTIAL MANUAL DIFFERENTIAL (MANUAL DIFF)
[2023-03-13 08:07] LABS: Alanine Aminotransferase 39 U/L (12-78); Albumin Level 3.9 g/dl (3.5-5.0); Albumin/Globulin Ratio 1.1 (1.1-1.8); Alkaline Phosphatase 80 U/L (38-126); Aspartate Amino Transferase 41 U/L (14-36); Bilirubin,Total 0.2 mg/dl (0.2-1.3); Blood Urea Nitrogen 10 mg/dl (7-17); Calcium 8.6 mg/dl (8.4-10.2); Carbon Dioxide 19 mmol/L (22.0-30.0); Chloride 109 mmol/L (98-107); Creatinine Clearance Estimated 128 mL/min (50-200); Estimated Glomerular Filt Rate 99 ml/min (>60); GFR (African American) 120 ML/MIN (>60); Globulin 3.5 g/dL (1.3-3.2); Glucose 163 mg/dl (74-100); Sodium 138 mmol/L (136-145); Total Protein,Serum 7.4 g/dl (6.3-8.2)
[2023-03-13 08:21] LABS: Lymphocytes % 8 % (10-50); Monocytes % 1 % (2-9); Neutrophils % 91 % (42-76); Platelet Estimate Normal; RBC Morphology Normal; Total Cells Counted 100
--- NOTE | 2023-03-13 11:07 | EXP.PN ---
Subjective *Date: 03/13/23 *Time: 11:07 Interval history: patient was seen and evaluated at the bedside. No reported acute events overnight, denies chest pain, shortness of breath, nausea, vomiting, abdominal pain. Exam Data for Last 24 hours Vital signs and Labs for Last 24 Hours: Temp Pulse Resp BP Pulse Ox O2 Del Method 98.3 F 100 H 19 131/89 97 Room Air 03/13/23 07:45 03/13/23 08:10 03/13/23 07:45 03/13/23 07:45 03/13/23 07:45 03/13/23 08:05 Laboratory Results - last 24 hr 03/12/23 00:00: Chlamy pneumoniae PCR TNP, Adenovirus (PCR) Not detected, B. pertussis DNA (PCR) TNP, Coronavirus OC43 (PCR) Not detected, Coronavirus HKU1 (PCR) Not detected, Coronavirus 229E (PCR) Not detected, SARS-CoV-2 (PCR) Not detected, Coronavirus NL63 (PCR) Not detected, Human Metapneumovir PCR Not detected, Influenza A (H1) PCR Not detected, Influ A (H1N1/09) PCR Not detected, Influenza A (H3) PCR Not detected, Influenza Type A (PCR) Not detected, Influenza Type B (PCR) Not detected, M. pneumoniae (PCR) TNP, Parainfluenza 1 (PCR) Not detected, Parainfluenza 2 (PCR) Not detected, Parainfluenza 3 (PCR) Not detected, Parainfluenza 4 (PCR) Not detected, RSV (PCR) Not detected, Entero/Rhino (PCR) Detected A 03/12/23 20:13: WBC 11.4 H, RBC 5.09, Hgb 14.2, Hct 44.7, MCV 87.8, MCH 27.9, MCHC 31.7 L, RDW 14.0, Plt Count 397, MPV 8.7, Neut % (Auto) 63.7, Lymph % (Auto) 24.9, [place] % (Auto) 4.7, Eos % (Auto) 6.1, Baso % (Auto) 0.6, Neut # (Auto) 7.3, Lymph # (Auto) 2.8, [place] # (Auto) 0.5, Eos # (Auto) 0.7 H, Baso # (Auto) 0.1, Sodium 138, Potassium 3.5, Chloride 107, Carbon Dioxide 22, Anion Gap 12.5, BUN 12, Creatinine 0.80, Estimated Creat Clear 112, Estimated GFR 85, Est GFR ( Amer) 103, Glucose 118 H, Lactate 2.8 H, Calcium 8.5, Total Bilirubin 0.4, AST 41 H, ALT 30, Alkaline Phosphatase 82, Troponin I < 0.01, NT-Pro-B Natriuret Pep < 20.0, Total Protein 8.0, Albumin 4.2, Globulin 3.8 H, Albumin/Globulin Ratio 1.1, Lipase 103, TSH 2.12, Thyroxine (T4) 9.6, Serum HCG, Qual Negative 03/12/23 20:24: SARS-CoV-2 (PCR) Not detected, Influenza A Untype (PCR) Not detected, Influenza Type B (PCR) Not detected 03/12/23 20:28: VBG pH 7.39, VBG pCO2 35.3, VBG pO2 35.5, VBG HCO3 21.0 L, VBG Total CO2 22.1 L, VBG O2 Saturation 69.4, VBG Base Excess -3.9 L 03/12/23 23:13: Lactate 3.9 H, Troponin I < 0.01 03/13/23 01:52: Lactate 4.3 H, Troponin I < 0.01 03/13/23 07:35: WBC 9.8, RBC 4.66, Hgb 13.1, Hct 40.0, MCV 85.9, MCH 28.2, MCHC 32.8, RDW 14.0, Plt Count 318, MPV 8.8, Neut % (Auto) 88.6 H, Lymph % (Auto) 8.8 L, [place] % (Auto) 0.8 L, Eos % (Auto) 1.6, Baso % (Auto) 0.2, Neut # (Auto) 8.7 H, Lymph # (Auto) 0.9, [place] # (Auto) 0.1, Eos # (Auto) 0.2, Baso # (Auto) 0.0, Total Counted 100, Neutrophils % (Manual) 91 H, Lymphocytes % (Manual) 8 L, Monocytes % (Manual) 1 L, Platelet Estimate Normal, RBC Morphology Normal, Sodium 138, Potassium 4.0, Chloride 109 H, Carbon Dioxide 19 L, Anion Gap 14.0, BUN 10, Creatinine 0.70, Estimated Creat Clear 128, Estimated GFR 99, Est GFR ( Amer) 120, Glucose 163 H D, Calcium 8.6, Total Bilirubin 0.2, AST 41 H, ALT 39 D, Alkaline Phosphatase 80, Total Protein 7.4, Albumin 3.9, Globulin 3.5 H, Albumin/Globulin Ratio 1.1 I & O for Last 24 hours: Intake & Output 03/10/23 03/11/23 03/12/23 03/13/23 23:59 23:59 23:59 23:59 Intake Total 2500 / 2700 670 / 670 Output Total 0 / 0 Balance 2500 / 2700 670 / 670 Weight 201.8 kg 201.8 kg Constitutional Constitutional: no acute distress *Routine HEENT Exam Head: Present normocephalic Eye: Present EOMI and PERRL ENT: Present mucous membranes moist *Routine Neck Exam Neck: Present supple; Absent lymphadenopathy *Routine Respiratory Exam Respiratory: Present CTA bilaterally *Routine Cardiovascular Exam Cardiovascular: Present RRR *Routine Abdominal Exam Abdominal: Present soft and normoactive bowel sounds; Absent tenderness *Routine Extremities Exam Extremities: Absent cyan
[2023-03-13 15:24] LABS: Reflex Lactic Add Lactic Reflex
[2023-03-13 15:56] LABS: Lactic Acid Follow Up (RFLX 1) 1.8 mmol/L (0.7-2.1)
[2023-03-13 15:57] LABS: Free T4 (Free Thyroxine) 1.09 ng/dl (0.78-2.19)
[2023-03-13 16:12] LABS: Thyroid Stimulating Hormone 0.57 uIU/mL (0.465-4.68)
[2023-03-14] VITALS: PULSE 89
[2023-03-14 04:00] VITALS: BP 116/83; PULSE 80; PULSE 87; RESP 18; TEMP 36.8; O2SAT 95; BMI 63.6
--- NOTE | 2023-03-14 05:18 | PC.NURSE ---
Shift summary: Pt AOx4, awake, moving independently throughout shift. VSS, NSR noted on telemetry, RA. Pt experiencing intermittent dry cough, denies need for any PRN cough medicine at this time. No acute events or issues overnight. Fall precautions implemented and call light within reach.
[2023-03-14 08:00] VITALS: BP 143/79; PULSE 100; PULSE 106; RESP 18; TEMP 36.9; O2SAT 100
--- NOTE | 2023-03-14 11:47 | EXP.DC.SUM ---
General Admission date:: 03/12/23 Discharge date: 03/14/23 HPI HPI HPI: This is a 27-year-old female with past medical history of morbid obesity, who presented to the emergency department for evaluation of cough, shortness of breath. Onset was subacute, over the last 2 weeks. It has gotten progressively worse over the last 48 hours. No fever. Stated that her son had diagnosed with RSV bronchitis recently. Due to significant shortness of breath she presents here for continued evaluation. Denies chest pain, has been afebrile throughout course. Adequate urine output. Admitted for further work up and treatment. Hospital Course Hospital Course Hospital Course: 27-year-old female with past medical history of morbid obesity, who presented to the emergency department for evaluation of cough, shortness of breath. Onset was subacute, over the last 2 weeks. It has gotten progressively worse over the last 48 hours. No fever. Stated that her son had diagnosed with RSV bronchitis recently. On Arrival, CXR was obtained, there is inconclusive for focal pneumonia. no acute process. patient present with tachycardia and SOA, had a round of nebulizer and sepsis protocols. Labs are psoitives for mild leukocytosis, with lactic acidosis. IV abx started, BC pendings. Discussed with ER for admission . Plan as follow: -Dyspnea and cough greater than 3 week, with elevated lactic acid, without organ dysfunction: - improved Suspected close contact with RSV sick child dc on levofloxacin for 5 days -Tachycardia: improved, script given - Morbidly Obese with hyoventilation or restrict lung expansion: may exacerbate the difficult breathing. However ABG is supporting, and patient does not seem hypoxemic. Improved after albuterol. May f/u as outpatient. PCP to f/u abnormal BMI. Lovenox for DVT ppx Full code. Exam Data for Last 24 hours Vital signs and Labs for Last 24 Hours: Temp Pulse Resp BP Pulse Ox O2 Del Method 98.5 F 106 H 18 143/79 H 100 Room Air 03/14/23 08:00 03/14/23 08:00 03/14/23 08:00 03/14/23 08:00 03/14/23 08:00 03/14/23 10:43 Laboratory Results - last 24 hr 03/13/23 11:14: TSH 0.57 D, Free T4 1.09 03/13/23 15:40: Lactate 1.8 I & O for Last 24 hours: Intake & Output 03/11/23 03/12/23 03/13/23 03/14/23 23:59 23:59 23:59 23:59 Intake Total 2500 / 2700 3340 / 3515 535 / 535 Output Total 0 / 0 0 / 0 Balance 2500 / 2700 3340 / 3515 535 / 535 Weight 201.8 kg 201.8 kg 201.395 kg Constitutional Constitutional: no acute distress *Routine HEENT Exam Head: Present normocephalic Eye: Present EOMI and PERRL ENT: Present mucous membranes moist *Routine Neck Exam Neck: Present supple; Absent lymphadenopathy *Routine Respiratory Exam Respiratory: Present CTA bilaterally *Routine Cardiovascular Exam Cardiovascular: Present RRR *Routine Abdominal Exam Abdominal: Present soft and normoactive bowel sounds; Absent tenderness *Routine Extremities Exam Extremities: Absent cyanosis, clubbing or edema *Routine Skin Exam Skin: Present warm; Absent rash *Routine Neurological Exam Neurological: Present alert and oriented X3 Results Data Completed and Pending Labs on day of discharge: Labs from last 24 hours 03/13/23 03/13/23 15:40 11:14 Lactate 1.8 TSH 0.57 D Free T4 1.09 DS: Diagnosis Discharge Diagnosis (1) Dyspnea: Status: Acute Code(s): R06.00 - Dyspnea, unspecified Qualifiers: Dyspnea type: unspecified Qualified Code(s): R06.00 - Dyspnea, unspecified (2) Cough present for greater than 3 weeks: Status: Acute Code(s): R05.8 - Other specified cough (3) Tachycardia: Status: Acute Code(s): R00.0 - Tachycardia, unspecified (4) Lactic acid blood increased: Status: Acute Code(s): R79.89 - Other specified abnormal findings of blood chemistry (5) Obesity: Status: Acute Code(s): E66.9 - Obesity, un
[2023-03-14 12:00] VITALS: PULSE 100
--- NOTE | 2023-03-14 12:21 | HMH.PHAINT1 ---
Pharmacy Intervention Comments: DISCHARGE MEDICATION COUNSELING PROVIDED. DISCUSSED STARTING THE LEVOFLOXACIN (DAILY, TAKE WITH FOOD, N/V/D POSSIBLE, YOU'VE HAD THIS WHILE HERE). NO QUESTIONS VERBALIZED AT THIS TIME.
--- NOTE | 2023-03-14 12:49 | PC.NURSE ---
Rounded on patient with MD. Patient reported feeling better and requested to dc'd. All questions answered per MD, pt reports no concerns.
--- NOTE | 2023-03-16 09:04 | PC.NURSE ---
contacted pt about blood culture results, family answered phone and states that he will have the pt return my call. MD garza
--- NOTE | 2023-03-16 14:04 | CARE MANAGER ---
Attempted to contact patient x2 related to hospital discharge. CALEB. CORKY Levin
--- NOTE | 2023-03-16 14:45 | CARE MANAGER ---
Patient returned phone call regarding discharge. Patient states she is doing well except for cough. She states that she has not scheduled her follow up appointment yet, but will. She denies questions or concerns. CORKY Levin
--- NOTE | 2023-03-17 18:41 | PC.NURSE ---
attempted to call pt back to get an update for blood culture, call went to voicemail. aware
== END 2023-03-14 12:58 | disposition home or self-care (01) ==
LOC: ER 20:10 → 2ND 22:03
PROVIDERS: Nurse Practitioner Family; Admitting Provider Internal Medicine; Emergency Provider Emergency Medicine; PCP Internal Medicine; Visit Provider Internal Medicine
DX: R06.00 Dyspnea, unspecified (principal); E66.2 Morbid (severe) obesity with alveolar hypoventilation; Z68.44 Body mass index [BMI] 60.0-69.9, adult; R00.0 Tachycardia, unspecified; R05.8 Other specified cough
CPT/HCPCS: 36415; 71045; 71275; 80053; 82803; 83605; 83690; 83880; 84436; 84439; 84443; 84484; 84703; 85007; 85025; 87040; 87632; 87635; 87636; 93005; 99285; G0378; J0696; J1956

== ENCOUNTER 2023-03-25 12:35 | Emergency (ER) | payer MEDICAID, SELFPAY ==
[2023-03-25 13:05] VITALS: BP 136/93; PULSE 112; RESP 22; TEMP 36.7; O2SAT 98; BMI 48.7
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
--- NOTE | 2023-03-25 13:20 | PC.NURSE ---
PATIENT SENT TO ER PER Lemuel HORAN APRN FOR FURTHER EVALUATION. REPORT GIVEN TO Parveen MOTA RN. PATIENT AMBULATED TO ER WITH [facility] STAFF ASSIST
[2023-03-25 13:33] VITALS: BP 127/80; PULSE 98; RESP 18; TEMP 36.6; O2SAT 98; BMI 48.7
[2023-03-25 14:04] VITALS: BP 120/85; PULSE 78; O2SAT 98
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
[2023-03-25 14:14] LABS: Carboxyhemoglobin 0.5 (0.0-5.0)
[2023-03-25 14:21] VITALS: PULSE 90; PULSE 92
[2023-03-25 15:09] VITALS: BP 145/94; PULSE 96; RESP 18; TEMP 36.6; O2SAT 100
== END 2023-03-25 15:10 | disposition home or self-care (01) ==
LOC: UTC 12:50 → ER 13:26
PROVIDERS: Emergency Provider Emergency Medicine; PCP Internal Medicine
DX: J98.01 Acute bronchospasm (principal); R06.02 Shortness of breath; J70.5 Respiratory conditions due to smoke inhalation; E03.9 Hypothyroidism, unspecified; X00.1XXA Exposure to smoke in uncontrolled fire in building or structure, initial encounter
CPT/HCPCS: 82375; 99283

== ENCOUNTER 2023-04-26 10:18 | Emergency (ER) | payer MEDICAID, SELFPAY ==
[2023-04-26 10:45] VITALS: BP 151/88; PULSE 110; RESP 18; TEMP 37; O2SAT 99; BMI 61.9
--- NOTE | 2023-04-26 10:53 | ED_ITS ---
Discharge Plan Disposition Patient Disposition: Home, Self-Care Condition: Good Prescriptions Prescriptions: New amoxicillin [amoxicillin] 875 mg tablet 875 mg PO Q12H Qty: 20 0RF methylprednisolone 4 mg Tablets,Dose Pack 4 mg PO DIRECTED 6 Days Qty: 21 0RF Rx Instructions: Take 1 pack as directed for 6 days xnxpzevwztexcpj-[id number] [Bromfed DM] 2-30-10 mg/5 mL Syrup 5 ml PO Q6H PRN (Reason: Cough) Qty: 240 0RF No Action Nexplanon 68 mg implant 1 implant SUBDERMAL ONCE Rx Instructions: filled 11/25/22 albuterol sulfate 90 mcg/actuation HFA aerosol inhaler 2 inh inhalation Q2H PRN (Reason: shortness of breath or wheezing) Qty: 6.7 0RF Referrals Follow up/Referrals: Amado Belcher DO [Primary Care Provider] - See instructions Activity Restrictions/Add. Instructions Additional Instructions/Restrictions: Drink plenty of fluids. Take tylenol or ibuprofen for pain or fever. Take the medications as directed. Follow up with your regular doctor. GO TO THE ER FOR ANY WORSENING SYMPTOMS Clinical Impressions Clinical Impression: Sinusitis Stand Alone Forms Stand Alone Forms: Work/School Release Instructions Patient Instructions: Sinusitis, DI for Sinusitis Discharge ED Provider: [facility] General Stated complaint: Congestion, facial sinus pain Time Seen by Provider: 04/26/23 10:53 History of Present Illness Provider Complaint: She states that for the past 3 days she has had worsening sinus congestion, sinus drainage, and bilateral ear pain. Related Data Home Medications Medication Instructions Recorded Confirmed etonogestrel 68 mg subdermal 1 implant subdermal ONCE 03/13/23 04/26/23 implant (Nexplanon) control Previous Rx's Medication Instructions Recorded albuterol sulfate 90 mcg/actuation 2 inh inhalation Q2H PRN shortness 03/25/23 aerosol inhaler of breath or wheezing #6.7 grams amoxicillin 875 mg tablet 875 mg PO Q12H #20 tabs 04/26/23 ickbmelamkxjbcq-txyrfmntgbwdhhv-ME 5 ml PO Q6H PRN Cough #240 mL 04/26/23 2 mg-30 mg-10 mg/5 mL oral syrup (Bromfed DM) methylprednisolone 4 mg tablets in 4 mg PO DIRECTED 6 days #21 tabs 04/26/23 a dose pack Allergies Allergy/AdvReac Type Severity Reaction Status Date / Time cephalexin [From Keflex] Allergy Verified 04/26/23 11:13 erythromycin base Allergy Verified 04/26/23 11:13 [facility] Disclaimer: The information contained in this section may have been updated after the patient was seen, as this information can be updated by other users. Medical History Cholelithiasis Hypothyroidism Obesity Surgical History H/O wisdom tooth extraction H/O: 2019 Hx laparoscopic cholecystectomy Family History Other Family history of cancer Family history of heart attack Social History Smoking Status: Never smoker alcohol intake: never substance use type: denies use current occupational status: unemployed Travel in the last 8 weeks: None ROS Obtained: Yes All systems reviewed & no additional complaints except as documented Constitutional Constitutional: Reports poor appetite Eyes Eyes: Reports system reviewed and no additional complaints, except as documented ENT Ears, Nose, Mouth, and Throat: Reports as per HPI Cardiovascular Cardiovascular: Reports system reviewed and no additional complaints, except as documented and Denies chest pain Respiratory Respiratory: Denies shortness of breath, Denies chest congestion, Reports cough, Denies stridor and Denies wheezing Gastrointestinal Gastrointestingal: Reports system reviewed and no additional complaints, except as documented; Denies abdominal pain, diarrhea or vomiting Musculoskeletal Musculoskeletal: Reports system reviewed and no additional complaints, except as documented and Denies arthralgias Integumentary/Breasts Skin/Breast: Reports system reviewed and no additional complaints, except as documented and Denies rash Neurologic Neurologic: Denies paresthesias Allergic/Immunologic Allergic/Immunologic: Denies wheezing Physical Exam General General appearance: alert and in no apparent distress Eye Eye exam: Present normal appearance, PERRL and EOMI ENT ENT exam: Present mucous membranes moist and normal external ear exam Expanded ENT Exam External ear exam: Present normal external inspection TM/Canal exam: Bilateral TM: erythema and bulging Nose exam: Absent sinus tenderness Nasal speculum exam: Bilateral: normal Mouth exam: Present normal external inspection; Absent drooling Teeth exam: Present normal inspection Throat exam: Present tonsillar erythema and tonsillomegaly Neck Neck exam: Present normal inspection, full ROM and trachea midline; Absent tenderness, lymphadenopathy or thyromegaly Chest Chest inspection: Present normal inspection and symmetric chest wall rise; Absent tenderness or rash Respiratory Respiratory exam: Present normal lung sounds bilaterally; Absent respiratory distress, wheezes, stridor or accessory muscle use Cardiovascular Cardiovascular exam: Present regular rate, normal rhythm and normal heart sounds Abdominal Exam Abdominal exam: Present soft; Absent distention, tenderness, guarding, rebound or rigidity Extremities Exam Extremities exam: Present normal inspection, full ROM and normal capillary refill; Absent tenderness or calf tenderness Back Exam Back exam: Present normal inspection and full ROM; Absent tenderness Neurological Exam Neurological exam: Present alert and oriented X3 Psychiatric Psychiatric exam: Present normal affect and normal mood Skin Skin exam: Present warm, dry, intact and normal color Lymphatic Lymphatic Findings: no adenopathy Medical Decision Making Medical Records Medical records reviewed: No I reviewed the patient's medical records. Aditya Inquiry Pt receiving controlled substance: No Lab Data Lab results reviewed: Yes I reviewed the patient's lab results.
[2023-04-26 11:44] VITALS: BP 151/88; PULSE 110; RESP 18; TEMP 37; O2SAT 99
== END 2023-04-26 11:44 | disposition home or self-care (01) ==
PROVIDERS: Emergency Provider Nurse Practitioner Family; PCP Internal Medicine
DX: J01.90 Acute sinusitis, unspecified (principal); R09.81 Nasal congestion; H92.03 Otalgia, bilateral; R05.9 Cough, unspecified
CPT/HCPCS: 99212; 99214; G0463

== ENCOUNTER 2024-01-15 19:11 | Emergency (ER) | payer MEDICAID, SELFPAY ==
[2024-01-15 19:20] VITALS: BP 152/102; PULSE 108; RESP 24; TEMP 36.6; O2SAT 96; BMI 60.2
--- NOTE | 2024-01-15 19:35 | ED_ITS ---
Discharge Plan Disposition Patient Disposition: Home, Self-Care Condition: Good Prescriptions Prescriptions: New levofloxacin 500 mg tablet 500 mg PO DAILY 7 Days Qty: 7 0RF Proair Digihaler 90 mcg/actuation aero powdr breath act w/sensor 2 inh inhalation Q4-6H PRN (Reason: shortness of breath or wheezing) Qty: 1 0RF Rx Instructions: use as directed fluticasone propionate [Flonase Allergy Relief] 50 mcg/actuation spray,suspension 2 spray intranasal DAILY Qty: 16 0RF Rx Instructions: administer into each nostril daily guaifenesin [Mucinex] 1,200 mg tablet extended release 12hr 1,200 mg PO Q12H PRN (Reason: cough/congestion) Qty: 20 0RF No Action Nexplanon 68 mg implant 1 implant SUBDERMAL ONCE Rx Instructions: filled 11/25/22 Referrals Follow up/Referrals: Amado Belcher DO [Primary Care Provider] - See instructions Activity Restrictions/Add. Instructions Additional Instructions/Restrictions: * Start antibiotic today. Be sure to complete entire prescription even if feeling better * Monitor temp. Tylenol every 4 hours as needed and / or ibuprofen every 6 hours as needed ( As long as your primary care physician has told you that it ok to take both. For fever/aches/pains ER if no less than 101 despite Tylenol or Motrin * Humidifier/vaporizer or hot steamy shower * Inhaler every 4-6 hours as needed like we discussed. If unsure how to use it, ask pharmacist to demonstrate how. Should help open airways and improve cough, wheezing, and shortness of breath * Mucinex for your cough Be sure to drink lots of water. Follow up IMMEDIATELY for new or worsening of symptoms OR no noticeable improvement over the next 48-72 hours. 911 immediately for any life threatening symptoms such as chest pain or difficulty breathing Clinical Impressions Clinical Impression: Sinusitis Instructions Patient Instructions: DI for Sinusitis, Acute Bronchitis Print Language Print Language: Upper Sorbian Discharge ED Provider: Sarah Sampson [facility] HPI General Stated complaint: SOA,pain,pressure under both eyes,congestion Mode of Arrival: Ambulatory Source of Information: Patient Limitations: No Limitations Time Seen by Provider: 01/15/24 19:35 Description of Symptoms (Recalled from Triage Doc. by RN): PATIENT C/O CONGESTION, SINUS PAIN/PRESSURE, RIGHT EAR PRESSURE, LOSS OF TASTE AND SMELL, SOA AND WHEEZING HEENT Symptoms (Recalled from RN notes): Yes Resp Symptoms (Recalled from RN notes): Yes Skin Symptoms (Recalled from RN notes): No MS Symptoms (Recalled from RN notes): No Functional Status (Recalled from RN notes): WNL History of Present Illness Provider Complaint: Patient states that she thinks she may have a bad sinus infection States that she has been having sinus pain and pressure for over a week and pressure behind her eyes States that when she bends over she can feel the pressure in her sinuses States that she is having thick elmers glue like mucous from her nose that is yellowish brown and having drainage in the back of her throat that is causing her to cough and wheeze States that when she get sick it makes her have wheezing at times and she is out of her inhaler they give her States that she cannot breath out of her nose and it makes her feels SOA at times Denies known fever, Denies Chest pain Denies productive cough Related Data Home Medications ?Medication ?Instructions ?Recorded ?Confirmed etonogestrel 68 mg subdermal 1 implant subdermal ONCE 03/13/23 01/15/24 implant (Nexplanon) control Previous Rx's ?Medication ?Instructions ?Recorded albuterol sulfate 90 mcg/actuation 2 inh inhalation Q4-6H PRN 01/15/24 breath activated powder shortness of breath or wheezing #1 inhaler,sensor (Proair Digihaler) ea fluticasone propionate 50 2 spray intranasal DAILY #16 grams 01/15/24 mcg/actuation nasal spray,suspension (Flonase Allergy Relief) guaifenesin 1,200 mg tablet, 1,200 mg PO Q12H PRN 01/15/24 extended release 12 hr (Mucinex) cough/congestion #20 tabs levofloxacin 500 mg tablet 500 mg PO DAILY 7 days #7 tabs 01/15/24 Allergies Allergy/AdvReac Type Severity Reaction Status Date / Time cephalexin [From Keflex] Allergy Verified 04/26/23 11:13 erythromycin base Allergy Verified 04/26/23 11:13 Worker's Comp Is this a Worker's Comp case?: No [facility] Disclaimer: The information contained in this section may have been updated after the patient was seen, as this information can be updated by other users. Medical History Cholelithiasis Hypothyroidism Obesity Surgical History H/O wisdom tooth extraction H/O: 2019 Hx laparoscopic cholecystectomy Family History Other Family history of cancer Family history of heart attack Social History Smoking Status: Never smoker alcohol intake: never substance use type: denies use current occupational status: unemployed Travel in the last 8 weeks: None ROS Obtained: Yes All systems reviewed & no additional complaints except as documented and Yes Systems reviewed as appropriate & no additional complaints except as documented Constitutional Constitutional: Reports system reviewed and no additional complaints, except as documented, Reports as per HPI, Denies body ache, Denies chills, Denies fever(s) and Reports headache(s) ENT Ears, Nose, Mouth, and Throat: Reports system reviewed and no additional complai nts, except as documented, Reports as per HPI, Reports headache(s), Reports sinus pain and Reports sinus pressure Cardiovascular Cardiovascular: Reports system reviewed and no additional complaints, except as documented, Reports as per HPI and Denies chest pain Respiratory Respiratory: Reports system reviewed and no additional complaints, except as documented, Reports as per HPI, Reports shortness of breath (report at times on and off ), Denies chest congestion, Reports cough (on and off), Denies pain on inspiration, Denies pain with cough and Reports wheezing (at times out of her inhaler) Gastrointestinal Gastrointestingal: Reports system reviewed and no additional complaints, except as documented and as per HPI; Denies abdominal pain, nausea or vomiting Neurologic Neurologic: Reports headache(s) Allergic/Immunologic Allergic/Immunologic: Reports wheezing (at times out of her inhaler) Physical Exam General General appearance: alert and in no apparent distress ENT ENT exam: Present mucous membranes moist Expanded ENT Exam Nose exam: Present sinus tenderness (reports thick dark yellowish brown mucous) Throat exam: Present other (PND noted) Respiratory Respiratory exam: Present normal lung sounds bilaterally and wheezes (mild diffuse); Absent respiratory distress Cardiovascular Cardiovascular exam: Present regular rate, normal rhythm and tachycardia Abdominal Exam Abdominal exam: Present soft and normal bowel sounds; Absent distention or tenderness Neurological Exam Neurological exam: Present alert, oriented X3 and normal gait Medical Decision Making Medical Records Screening: Per USPSTF and CDC recommendations, given the prevalence of disease in our region, it is our hospital?s policy to screen for HIV and viral Hepatitis for all patients aged 18 and over and those with ongoing risk factors. Aditya Inquiry Pt receiving controlled substance: No Aditya was queried for this patient: No Vital Signs: 01/15/24 19:20 Temperature 97.9 F Temperature Source Oral Pulse Rate [Left Brachial] 127 H Respiratory Rate 24 Blood Pressure [Left Arm] 152/102 H Blood Pressure Mean [Left Arm] 118 Blood Pressure Source [Left Arm] Automatic Cuff Blood Pressure Position [Left Arm] Sitting 02 Sat by Pulse Oximetry 96 Oxygen Delivery Method Room Air Medical Decision Narrative: Discussed CXR with patient and declined at this time States feels like she has a bad sinus infection and the pressure in her sinuses is what brought her in and needing a refill on her inhaler, States that she only feels SOA at times after coughing and feels like she cannot breath through her nose Discussed transfer to the ED for further lab work up due to PMHX and she declined that also States that she will start the antibiotic and use her inhaler and will follow up with PCP Patient aware of risks and still persistant on going home Patient given strict return precautions After nebulizer no wheezing noted lung sounds clear Denies SOA at this time
[2024-01-15] MEDS: METHYLPREDNISOLONE SOD SUCC 125MG VIAL 125 MG IM (19:40)
[2024-01-15] MEDS: IPRATROPIUM/ALBUTEROL 3 ML NEB IH (19:43)
[2024-01-15 20:15] VITALS: BP 152/102; PULSE 108; RESP 24; TEMP 36.6; O2SAT 96
[2024-01-15] MEDS: levoFLOXacin 500MG TAB 500 MG PO (20:15)
== END 2024-01-15 20:18 | disposition home or self-care (01) ==
PROVIDERS: Emergency Provider Nurse Practitioner; PCP Internal Medicine
DX: J01.80 Other acute sinusitis (principal); J20.9 Acute bronchitis, unspecified
CPT/HCPCS: 96372; 99213; G0381; J2919; J7620

== ENCOUNTER 2024-01-30 15:52 | Emergency (ER) | payer MEDICAID, SELFPAY ==
[2024-01-30 16:27] VITALS: BP 132/92; PULSE 147; RESP 20; TEMP 37.1; O2SAT 96; BMI 60.2
[2024-01-30 16:41] LABS: UTC Influenza A Antigen Negative (Negative); UTC Strep Screen (Rapid) Negative (Negative)
[2024-01-30 16:42] LABS: UTC Influenza B Antigen Negative (Negative)
--- NOTE | 2024-01-30 16:49 | ED_ITS ---
Discharge Plan Disposition Patient Disposition: Home, Self-Care Condition: Good Prescriptions Prescriptions: New doxycycline hyclate 100 mg capsule 100 mg PO BID 7 Days Qty: 14 0RF yjotbgmekfyyjcu-iuvhwnkvy-CI [Bromfed DM] 2-30-10 mg/5 mL syrup 10 ml PO Q6H PRN (Reason: cold symptoms) Qty: 150 0RF No Action Nexplanon 68 mg implant 1 implant SUBDERMAL ONCE Rx Instructions: filled 11/25/22 levofloxacin 500 mg tablet 500 mg PO DAILY 7 Days Qty: 7 0RF Proair Digihaler 90 mcg/actuation aero powdr breath act w/sensor 2 inh inhalation Q4-6H PRN (Reason: shortness of breath or wheezing) Qty: 1 0RF Rx Instructions: use as directed fluticasone propionate [Flonase Allergy Relief] 50 mcg/actuation spray,suspension 2 spray intranasal DAILY Qty: 16 0RF Rx Instructions: administer into each nostril daily guaifenesin [Mucinex] 1,200 mg tablet extended release 12hr 1,200 mg PO Q12H PRN (Reason: cough/congestion) Qty: 20 0RF Referrals Follow up/Referrals: Amado Belcher DO [Primary Care Provider] - See instructions Activity Restrictions/Add. Instructions Additional Instructions/Restrictions: *Monitor Temp, Over the counter Motrin or Tylenol as directed/as needed Tylenol every 4 hours and Motrin every 6 hours (as long as your family doctor has told you that you can take it) for fever or pain. and straight to ER if unable to lower temp less than 101.0 after medication given *Warm salt water gargles may help to soothe the throat *Throat Lozenges? *Warm fluids like tea with honey may help to soothe the throat? *Sleep elevated *Humidifier/Vaporizer *Bromfed may cause drowsiness. Know how it effects you (your child) before driving, caring for small child, or sending your child to school. Not other antihistamines/allergy medications while taking bromfed Your throat swab was sent for culture. Those results are typically sent to your primary care. Be sure to follow up in 2-3 days with your family doctor/primary care physician if no improvement so they can review those result and treat if necessary. If you don?t have a primary care doctor, I recommend you get one but in the mean time, you will have to return to a walk in clinic Follow up IMMEDIATELY for new or worsening symptoms or no Noticeable improvement over the next 48-72 hours. 911 for difficulty breathing or swallowing You were tested for today for Upper Respiratory Panel with COVID19 your test result should be back in the next 24 hours, you may check your results on the [facility] Clinical Impressions Clinical Impression: Sinusitis Instructions Patient Instructions: DI for Sinusitis, Cough, Doxycycline Print Language Print Language: Mozambican Discharge ED Provider: Sarah Sampson [facility] [place] General Stated complaint: Chills,sore throat,Muscle pain,body aches,VILLALBA Mode of Arrival: Ambulatory Source of Information: Patient Limitations: No Limitations Time Seen by Provider: 01/30/24 16:52 Description of Symptoms (Recalled from Triage Doc. by RN): Reports chills, body aches, sore throat, ear pain, and cough. HEENT Symptoms (Recalled from RN notes): Yes Resp Symptoms (Recalled from RN notes): No Skin Symptoms (Recalled from RN notes): No MS Symptoms (Recalled from RN notes): No Functional Status (Recalled from RN notes): wnl History of Present Illness Provider Complaint: Patient states that she has been having sore throat, bilateral ear pain and pressure, sinus congestion cough, chills and body aches States that she was seen and treated for sinus infection a couple weeks ago and was doing better but then symptoms started again a couple days ago so today she came in to get checked Related Data Home Medications ?Medication ?Instructions ?Recorded ?Confirmed etonogestrel 68 mg subdermal 1 implant subdermal ONCE 03/13/23 01/15/24 implant (Nexplanon) control Previous Rx's ?Medication ?Instructions ?Recorded albuterol sulfate 90 mcg/actuation 2 inh inhalation Q4-6H PRN 01/15/24 breath activated powder shortness of breath or wheezing #1 inhaler,sensor (Proair Digihaler) ea fluticasone propionate 50 2 spray intranasal DAILY #16 grams 01/15/24 mcg/actuation nasal spray,suspension (Flonase Allergy Relief) guaifenesin 1,200 mg tablet, 1,200 mg PO Q12H PRN 01/15/24 extended release 12 hr (Mucinex) cough/congestion #20 tabs levofloxacin 500 mg tablet 500 mg PO DAILY 7 days #7 tabs 01/15/24 brinnskixjijmso-abehjnsnuhqniwh-PK 10 ml PO Q6H PRN cold symptoms 01/30/24 2 mg-30 mg-10 mg/5 mL oral syrup #150 mL (Bromfed DM) doxycycline hyclate 100 mg capsule 100 mg PO BID 7 days #14 caps 01/30/24 Allergies Allergy/AdvReac Type Severity Reaction Status Date / Time cephalexin [From Keflex] Allergy Verified 04/26/23 11:13 erythromycin base Allergy Verified 04/26/23 11:13 Worker's Comp Is this a Worker's Comp case?: No [facility] Disclaimer: The information contained in this section may have been updated after the patient was seen, as this information can be updated by other users. Medical History Cholelithiasis Hypothyroidism Obesity Surgical History H/O wisdom tooth extraction H/O: 2019 Hx laparoscopic cholecystectomy Family History Other Family history of cancer Family history of heart attack Social History Smoking Status: Never smoker alcohol intake: never substance use type: denies use current occupational status: unemployed Travel in the last 8 weeks: None ROS Obtained: Yes All systems reviewed & no additional complaints except as documented and Yes Systems reviewed as appropriate & no additional complaints except as documented Constitutional Constitutional: Reports system reviewed and no additional complaints, except as documented, Reports as per HPI, Reports body ache, Reports chills, Reports fever(s) and Reports headache(s) ENT Ears, Nose, Mouth, and Throat: Reports system reviewed and no additional complaints, except as documented, Reports as per HPI, Reports headache(s), Reports nasal congestion, Reports sinus pain, Reports sinus pressure and Reports sore throat Cardiovascular Cardiovascular: Reports system reviewed and no additional complaints, except as documented and Reports as per HPI Respiratory Respiratory: Reports system reviewed and no additional complaints, except as documented, Reports as per HPI, Denies shortness of breath, Reports cough and Denies wheezing Gastrointestinal Gastrointestingal: Reports system reviewed and no additional complaints, except as documented and as per HPI Neurologic Neurologic: Reports headache(s) Allergic/Immunologic Allergic/Immunologic: Denies wheezing Physical Exam General General appearance: alert and in no apparent distress ENT ENT exam: Present mucous membranes moist Expanded ENT Exam Nose exam: Present sinus tenderness (reports tenderness with palpation) Throat exam: Present other (Pharyngeal erythema noted with PND) Respiratory Respiratory exam: Present normal lung sounds bilaterally; Absent respiratory distress or wheezes Cardiovascular Cardiovascular exam: Present regular rate and tachycardia Neurological Exam Neurological exam: Present alert, oriented X3 and normal gait Medical Decision Making Medical Records Screening: Per USPSTF and CDC recommendations, given the prevalence of disease in our region, it is our hospital?s policy to screen for HIV and viral Hepatitis for all patients aged 18 and over and those with ongoing risk factors. Aditya Inquiry Pt receiving controlled substance: No Aditya was queried for this patient: No Vital Signs: 01/30/24 16:27 Temperature 98.8 F Temperature Source Oral Pulse Rate [Radial] 147 H Respiratory Rate 20 Blood Pressure [Right Arm] 132/92 H Blood Pressure Mean [Right Arm] 105 Blood Pressure Source [Right Arm] Automatic Cuff Blood Pressure Position [Right Arm] Sitting 02 Sat by Pulse Oximetry 96 Oxygen Delivery Method Room Air Lab Data Lab results reviewed: Yes I reviewed the patient's lab results. Lab Results 01/30/24 16:30: Influenza Type A Ag Negative, Influenza Type B Ag Negative, Strep Scn Rapid Clinic Negative Orders (Tests/Meds): ORDERS Category Date Time Status Strep Screen Confirmation Stat Micro 01/30/24 16:30 Received Medical Decision Narrative: Rechecked HR 110 discussed lab draw or transfer to the ED and she declined
[2024-01-30 17:16] VITALS: BP 132/92; PULSE 115; RESP 20; TEMP 37.1; O2SAT 96
[2024-01-30 17:17] LABS: Bordetella Pertussis Not Detected (NotDetected); Chlamydophila Pneumoniae, PCR Not Detected (NotDetected); Coronavirus 19, PCR Not Detected (NotDetected); Coronavirus 229E Not Detected (NotDetected); Coronavirus NL63 Not Detected (NotDetected); Coronavirus OC43 Not Detected (NotDetected); Coronovirus HKU1,PCR Not Detected (NotDetected); Human Metapneumovirus Not Detected (NotDetected); Influenza A, PCR Not Detected (NotDetected); Influenza AH1, 2009 Not Detected (NotDetected); Influenza AH1, PCR Not Detected (NotDetected); Influenza AH3,PCR Not Detected (NotDetected); Influenza B, PCR Not Detected (NotDetected); Mycoplasma Pneumoniae, PCR Not Detected (NotDetected); Parainfluenza 1, PCR Not Detected (NotDetected); Parainfluenza 2, PCR Not Detected (NotDetected); Parainfluenza 3, PCR Not Detected (NotDetected); Parainfluenza 4, PCR Not Detected (NotDetected); Respiratory Syncytial Virus Not Detected (NotDetected); Rhinovirus/Enterovirus Not Detected (NotDetected)
[2024-01-31 01:15] LABS: Adenovirus,PCR Detected (NotDetected)
== END 2024-01-30 17:17 | disposition home or self-care (01) ==
PROVIDERS: Emergency Provider Nurse Practitioner; PCP Internal Medicine
DX: J01.90 Acute sinusitis, unspecified (principal); R07.0 Pain in throat; H92.03 Otalgia, bilateral; R05.9 Cough, unspecified; R50.9 Fever, unspecified; R09.81 Nasal congestion
CPT/HCPCS: 87265; 87486; 87581; 87632; 87635; 87804; 87880; 99212; G0381

== ENCOUNTER 2024-06-10 08:15 | Emergency (ER) | payer MEDICAID, SELFPAY ==
[2024-06-10 08:22] VITALS: BP 138/97; PULSE 112; O2SAT 98
--- NOTE | 2024-06-10 08:24 | ED_ITS ---
Discharge Plan Disposition Patient Disposition: Home, Self-Care Prescriptions Prescriptions: No Action Nexplanon 68 mg implant 1 implant SUBDERMAL ONCE Rx Instructions: filled 11/25/22 levofloxacin 500 mg tablet 500 mg PO DAILY 7 Days Qty: 7 0RF Proair Digihaler 90 mcg/actuation aero powdr breath act w/sensor 2 inh inhalation Q4-6H PRN (Reason: shortness of breath or wheezing) Qty: 1 0RF Rx Instructions: use as directed fluticasone propionate [Flonase Allergy Relief] 50 mcg/actuation spray,suspension 2 spray intranasal DAILY Qty: 16 0RF Rx Instructions: administer into each nostril daily guaifenesin [Mucinex] 1,200 mg tablet extended release 12hr 1,200 mg PO Q12H PRN (Reason: cough/congestion) Qty: 20 0RF doxycycline hyclate 100 mg capsule 100 mg PO BID 7 Days Qty: 14 0RF zschmxvnfmcbvxl-blkcqbeal-JD [Bromfed DM] 2-30-10 mg/5 mL syrup 10 ml PO Q6H PRN (Reason: cold symptoms) Qty: 150 0RF Referrals Follow up/Referrals: Amado Belcher DO [Primary Care Provider] - See instructions Activity Restrictions/Add. Instructions Additional Instructions/Restrictions: Bear weight as tolerated of her left knee. Rest is much as possible. Apply ice for 40 minutes at a time to help reduce swelling. Keep Rodger bandage around knee to prevent swelling. Follow-up with your primary care provider. Take Tylenol and ibuprofen as needed for pain. Clinical Impressions Clinical Impression: Injury of knee, left Instructions Patient Instructions: How To Perform RICE (Rest, Ice, Compress, Elevate) Print Language Print Language: Liberian Discharge ED Provider: Flor Muro General Adult HPI General Chief complaint: Extremity Injury, Lower Stated complaint: AO 06/09 slipped, L knee pain/swelling Time Seen by Provider: 06/10/24 08:24 History of Present Illness HPI narrative: Patient is a 29-year-old past medical history significant for obesity presents to the emergency department with left knee pain. Patient was mopping yesterday evening and slipped and fell directly on the left knee. Did not hit head and did not lose consciousness. Was able to ambulate yesterday however today unable to ambulate due to severe pain and swelling. Pain is severe located at the knee worse with any ambulation. Currently on menstrual period. Nexplanon for control. Denies tobacco alcohol or illicit drug use. Prior surgical history cholecystectomy . Related Data Home Medications ?Medication ?Instructions ?Recorded ?Confirmed etonogestrel 68 mg subdermal 1 implant subdermal ONCE 03/13/23 01/15/24 implant (Nexplanon) control Previous Rx's ?Medication ?Instructions ?Recorded albuterol sulfate 90 mcg/actuation 2 inh inhalation Q4-6H PRN 01/15/24 breath activated powder shortness of breath or wheezing #1 inhaler,sensor (Proair Digihaler) ea fluticasone propionate 50 2 spray intranasal DAILY #16 grams 01/15/24 mcg/actuation nasal spray,suspension (Flonase Allergy Relief) guaifenesin 1,200 mg tablet, 1,200 mg PO Q12H PRN 01/15/24 extended release 12 hr (Mucinex) cough/congestion #20 tabs levofloxacin 500 mg tablet 500 mg PO DAILY 7 days #7 tabs 01/15/24 ujzdarqkoviuhoe-lixzmrceeqmtpxq-NS 10 ml PO Q6H PRN cold symptoms 01/30/24 2 mg-30 mg-10 mg/5 mL oral syrup #150 mL (Bromfed DM) doxycycline hyclate 100 mg capsule 100 mg PO BID 7 days #14 caps 01/30/24 Allergies Allergy/AdvReac Type Severity Reaction Status Date / Time cephalexin (From Keflex) Allergy Verified 04/26/23 11:13 erythromycin base Allergy Verified 04/26/23 11:13 [facility] Disclaimer: The information contained in this section may have been updated after the patient was seen, as this information can be updated by other users. Medical History Cholelithiasis Hypothyroidism Obesity Surgical History H/O wisdom tooth extraction H/O: 2019 Hx laparoscopic cholecystectomy Family History Other Family history of cancer Family history of heart attack Social History Smoking Status: Never smoker alcohol intake: never substance use type: denies use current occupational status: unemployed Travel in the last 8 weeks: None Have you lived/traveled outside [place] in past 30 days?: No Contact w/someone who lives/traveled outside US past 30 days?: No Exposure to someone with infectious disease in past 14 days?: No Do you have a fever (greater than 100.4 F or 38 C)?: No Have you tested positive for COVID-19: No Exposed to someone with COVID-19 in past 14 days?: No Do you have a sore throat?: No Do you have a cough?: No Do you have any weakness?: No Do you have any diarrhea?: No Are you experiencing any unusual bleeding?: No Do you have any muscle aches/pain?: No Do you have any abdominal pain?: No Are you experiencing loss of taste or smell?: No Other Medical History Have you received the Flu Vaccine for this season: No Have you received the Pneumonia Vaccine: No ROS Obtained: Yes All systems reviewed & no additional complaints except as documented Physical Exam General General appearance: alert, in no apparent distress and obese Head Head exam: atraumatic and normocephalic Neck Neck exam: Present full ROM; Absent tenderness Respiratory Respiratory exam: Absent respiratory distress Cardiovascular Cardiovascular exam: Present normal rhythm and tachycardia Abdominal Exam Abdominal exam: Absent distention or tenderness Extremities Exam Extremities exam: Present tenderness (Left knee and left proximal tib-fib) and other (No appreciable joint effusion of the left knee, neurovascularly intact distal to left knee injury no tenderness of any other joints other than the left knee.); Absent full ROM (Decreased range of motion of the left knee secondary to pain) Neurological Exam Neurological exam: Present alert and oriented X3; Absent motor sensory deficit Skin Skin exam: Present other (No bruising abrasions or lacerations) Medical Decision Making Medical Records Screening: Per USPSTF and CDC recommendations, given the prevalence of disease in our region, it is our hospital?s policy to screen for HIV and viral Hepatitis for all patients aged 18 and over and those with ongoing risk factors. Aditya Inquiry Pt receiving controlled substance: Yes Aditya was queried for this patient: No Risks and benefits of using a controlled substance: were discussed with pt by me Vital Signs: 06/10/24 08:22 06/10/24 08:27 06/10/24 09:16 Temperature 97.8 F Temperature Source Oral Pulse Rate 112 H 95 H Pulse Rate [Left Radial] 117 H Respiratory Rate 20 Blood Pressure 138/97 H 123/81 Blood Pressure [Right Arm] 138/97 H Blood Pressure Mean [Right Arm] 110 02 Sat by Pulse Oximetry 98 100 100 Oxygen Delivery Method Room Air Room Air Room Air Orders (Tests/Meds): ED MEDICATIONS Discontinued Medications Generic Name Dose Route Start Last Admin Trade Name Freq PRN Reason Stop Dose Admin Acetaminophen 1,000 mg 06/10/24 08:35 06/10/24 08:39 Acetaminophen 500mg Tab PO 06/10/24 08:36 1,000 mg ONCE ONE Administration ORDERS Category Date Time Status CT Tib/Fib LT wo con Stat Cat Scan 06/10/24 09:[address] knee LT wo con Stat Cat Scan 06/10/24 09:35 Completed Femur XR left 2 views [XR femur LT 2V] Stat Exams 06/10/24 08:35 Completed Fibula/tibia XR left 2 views [XR tibia fibula LT 2V] Exams 06/10/24 08:35 Completed Stat Knee XR left 3 views [XR knee LT 3V] Stat Exams 06/10/24 08:35 Completed Medical Decision Narrative: In summary, this 29-year-old female presents to the emergency department today with traumatic left knee pain. On initial evaluation patient is tachycardic normotensive saturating appropriately on room air afebrile no acute distress. Differential diagnosis includes but is not limited to neurovascular injury tendon injury ligamentous injury acute fracture dislocation. Based on these concerns, I ordered left femur knee and tib-fib x-rays. Patient received ibuprofen Tylenol oxycodone for treatment. XR personally interpreted demonstrates no acute fracture. Patient still has point tenderness over the proximal tib-fib will obtain a CT to evaluate for occult fracture. CT imaging personally interpreted demonstrate no acute fracture. At this point workup is most consistent with ligamentous injury or sprain. No laxity of any specific ligaments on physical exam. Patient was placed with Rodger wrap instructed to bear weight as tolerated on her left lower extremity and follow-up with primary care provider for repeat evaluation and possible MRI of her left knee. Patient ambulatory with crutches and amenable to discharge with ou tpatient follow-up with primary care provider Critical Care Critical Care Time Critical Care Time: No
[2024-06-10 08:27] VITALS: BP 138/97; PULSE 117; RESP 20; TEMP 36.6; O2SAT 100; BMI 60.2
--- NOTE | 2024-06-10 08:35 | XR_ITS ---
PROCEDURE INFORMATION: Exam: XR Left Femur Exam date and time: 06/10/2024 8:51 AM Age: 29 years old Clinical indication: Injury or trauma; Fall; Blunt trauma; Thigh or upper leg; Left; Additional info: Fall, knee pain TECHNIQUE: Imaging protocol: Radiologic exam of the left femur. Views: 2 views. COMPARISON: CR XR FEMUR LT 2V 06/10/2024 8:51 AM FINDINGS: Bones/joints: Partial and limited visualization of the left femur shows no acute findings. Soft tissues: Unremarkable. IMPRESSION: Partial and limited visualization of the left femur shows no acute findings.
--- NOTE | 2024-06-10 08:35 | XR_ITS ---
PROCEDURE INFORMATION: Exam: XR Left Knee Exam date and time: 06/10/2024 8:51 AM Age: 29 years old Clinical indication: Injury or trauma; Fall; Blunt trauma; Knee; Left; Additional info: Fall knee pain TECHNIQUE: Imaging protocol: Radiologic exam of the left knee. Views: 3 views. COMPARISON: CR XR KNEE LT 3V 06/10/2024 8:51 AM FINDINGS: Bones/joints: Normal. Soft tissues: Normal. IMPRESSION: No acute findings.
--- NOTE | 2024-06-10 08:35 | XR_ITS ---
PROCEDURE INFORMATION: Exam: XR Left Tibia and Fibula Exam date and time: 06/10/2024 8:51 AM Age: 29 years old Clinical indication: Injury or trauma; Fall; Blunt trauma; Lower leg; Left; Additional info: Fall, knee pain TECHNIQUE: Imaging protocol: Radiologic exam of the left tibia and fibula. Views: 2 views. COMPARISON: CR XR KNEE LT 3V 06/10/2024 8:51 AM FINDINGS: Bones/joints: Normal. Soft tissues: Normal. IMPRESSION: No acute findings.
[2024-06-10] MEDS: ACETAMINOPHEN 500MG TAB 1000 MG PO (08:39)
[2024-06-10 09:16] VITALS: BP 123/81; PULSE 95; O2SAT 100
--- NOTE | 2024-06-10 09:35 | CT_ITS ---
PROCEDURE INFORMATION: Exam: CT Left Lower Extremity Without Contrast, Leg Exam date and time: 06/10/2024 9:50 AM Age: 29 years old Clinical indication: Injury or trauma; Fall and other: Occult fracture, left knee pain; Blunt trauma; Lower leg TECHNIQUE: Imaging protocol: CT of the left lower extremity without contrast was performed. Exam focused on the lower leg. Radiation optimization: All CT scans at this facility use at least one of these dose optimization techniques: automated exposure control; mA and/or kV adjustment per patient size (includes targeted exams where dose is matched to clinical indication); or iterative reconstruction. COMPARISON: CR XR TIBIA FIBULA LT 2V 06/10/2024 8:51 AM FINDINGS: Bones/joints: Normal. No acute fracture or dislocation. Soft tissues: Normal. IMPRESSION: No acute findings.
--- NOTE | 2024-06-10 09:35 | CT_ITS ---
PROCEDURE INFORMATION: Exam: CT Left Lower Extremity Without Contrast, Knee Exam date and time: 06/10/2024 9:50 AM Age: 29 years old Clinical indication: Injury or trauma; Fall and other: Occult fracture, occult fracture, left knee pain; Blunt trauma TECHNIQUE: Imaging protocol: CT of the left lower extremity without contrast was performed. Exam focused on the knee. Radiation optimization: All CT scans at this facility use at least one of these dose optimization techniques: automated exposure control; mA and/or kV adjustment per patient size (includes targeted exams where dose is matched to clinical indication); or iterative reconstruction. COMPARISON: CR XR KNEE LT 3V 06/10/2024 8:51 AM FINDINGS: Bones/joints: Normal. No acute fracture or dislocation. Soft tissues: Normal. IMPRESSION: No acute findings.
[2024-06-10 11:25] VITALS: BP 129/79; PULSE 70; RESP 20; TEMP 36.9; O2SAT 98
== END 2024-06-10 11:34 | disposition home or self-care (01) ==
PROVIDERS: Emergency Provider Student in an Organized Health Care Education/Training Program; PCP Internal Medicine
DX: M25.562 Pain in left knee (principal); S89.92XA Unspecified injury of left lower leg, initial encounter; E66.9 Obesity, unspecified; W01.0XXA Fall on same level from slipping, tripping and stumbling without subsequent striking against object, initial encounter; Y93.89 Activity, other specified; Y92.009 Unspecified place in unspecified non-institutional (private) residence as the place of occurrence of the external cause
CPT/HCPCS: 73552; 73562; 73590; 73700; 99284

== ENCOUNTER 2025-02-12 08:45 | Outpatient (CLI) | payer MEDICAID, SELFPAY ==
[2025-02-12 14:40] LABS: Coronavirus 19, PCR Not Detected (NotDetected); Influenza A, PCR Not Detected (NotDetected); Influenza B, PCR Not Detected (NotDetected)
--- OUTSIDE RECORDS SUMMARY | 2025-02-13 10:21 | XMS_ITS | Clinical Summary ---
Author Organization Healthcare Address [address] [place] [address] Care Team Providers Care Field Radio Operator Name Role Phone Erik Montana MD Primary Care Provider [phone] Allergies Active Allergy Reactions Criticality Noted Date Comments Erythromycin Other - please docum ent in the comment field Low 10/26/2022 Severe nausea/vomiting Cephalexin Itching,Rash Medium 10/26/2022 Medications levothyroxine (Synthroid, Levoxyl) 25 MCG tablet Take 1 tablet (25 mcg) by mouth 1 (one) time each day before breakfast. 3 Active SM Lice Treatment 1 % lotion 3 Active calcium carbonate EX (Tums Extra Strength) 750 MG chewable tablet Chew 1 tablet (750 mg) 3 (three) times a day if needed for indigestion or heartburn. Active methocarbamol (Robaxin) 500 MG tablet Take 1 tablet (500 mg) by mouth 4 (four) times a day for 10 days. 40 tablet 3 Active Additional Information Patient not taking.Reported on 01/25/2023 Nexplanon 68 MG implant 3 Active Active Problems Problem Noted Date Diagnosed Date S/P laparoscopic cholecystectomy 12/30/2022 Class III obesity with body mass index (BMI) of 40.0 or higher 10/27/2022 Obesity 10/26/2022 Overview (10/26/2022): BMI 66 Complicates care Choledocholithiasis 10/26/2022 Overview (10/26/2022): GI consult for ERCP Hypothyroidism 10/26/2022 Overview (10/26/2022): Complicates care Lice 10/26/2022 Overview (10/26/2022): Complicates care Immunizations Immunization Administration Dates Next Due 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 Social History Tobacco Use Types Packs/Day Years Used Date Smoking Tobacco: Never Smokeless Tobacco: Never Tobacco Cessation:Counseling Given: Not Answered Alcohol Use Standard Drinks/Week Comments Never 0 (1 standard drink = 0.6 oz pur e alcohol) PHQ-2 Answer Date Recorded Patient Health Questionnaire-2 Score 0 12/30/2022 PHQ-2A Answer Date Recorded Patient Health Questionnaire-2 Score 0 12/30/2022 Comments No Sex and Gender Information Value Date Recorded Sex Assigned at Not on file Legal Sex Female 8:40 PM EDT Gender Identity Not on file Sexual Orientation Not on file Last Filed Vital Signs Vital Sign Reading Time Taken Comments Blood Pressure 127/93 01/25/2023 12:45 PM EST Pulse 99 01/25/2023 12:45 PM EST Temperature 36.3 C (97.3 F) 01/25/2023 12:16 PM EST Respiratory Rate 14 01/25/2023 12:45 PM EST Oxygen Saturation 99% 01/25/2023 12:45 PM EST Inhaled Oxygen Concentration - - Weight 200 kg (440 lb 14.7 oz) 01/25/2023 9:21 A M EST Height 177.8 cm (5' 10 ) 01/25/2023 9:21 AM EST Body Mass Index 63.27 01/25/2023 9:21 AM EST Plan of Treatment Health Maintenance Due Date Last Done Comments [facility]-Infant/Child/Adol SDOH Screenings 1993 [facility]-Varicella Vaccines (1 of 2 - 13+ 2-dose series) 2006 [facility]- SDOH Screenings 2011 [facility]-Adult SDOH Screenings 2011 [facility]-DTaP,Tdap,and Td Vaccine s (1 - Tdap) 2012 [facility]-Hepatitis B Vaccines (1 of 3 - 19+ 3-dose series) 2012 [facility]-Pap Smear 2014 HPV Vaccines (1 - 3-dose SCD M series) 2020 [id number] Vaccine (2 - Mo derna risk series) 07/31/2020 07/03/2020 [facility]-Cervical Cancer Screening 2023 [facility]-HPV/Cotest 2023 [facility]-Depression Screening 12/31/2023 12/30/2022 [facility]-Influenza Vaccine (#1) 2024 [facility]-Zoster Vaccines (1 of 2) 2043 [facility]-HIV Screening Completed 10/26/2022 [facility]-Hepatitis C Screening Completed 10/26/2022 [facility]-Obesity Intervention Completed 12/30/2022 [facility]-HIB Vaccines Aged Out No longer e ligible based on patient's age to complete this topic [facility]-Hepatitis A Vaccines Aged Out No longer eligible based on patient's age to complete this topic [facility]-IPV Vaccines Aged Out No longer e ligible based on patient's age to complete this topic [facility]-Pneumococcal Vaccine: Pediatrics (0 to 5 Years) and At-Risk Patients (6 to 49 Years) Aged Out No long er eligible based on patient's age to complete this topic [facility]-Rotavirus Vaccines Aged Out No lo nger eligible based on patient's age to complete this topic Medical Devices Implanted Type Area Brass Molder Device Identifier Shelf Expiration Date Model / Serial / Lot Stent Biliary 10 X 80mm - [id number] Implanted:Qty: 1 on 10/26/2022 by Nitin Fowler MD at [facility] Other (See Comments) [id number] 02/07/2025 [id number] / [id number] / [id number] Stent Biliary 2.3 X 100mm - [id number] Implanted:Qty: 1 on 10/26/2022 by Nitin Fowler MD at [facility] Other (See Comments) [id number] 05/19/2025 [id number] / / [id number] Procedures Procedure Name Priority Date/Time Associated Diagnosis Comments HEPATITIS C ANTIBODY - ED W/REFLEX TO HCV QUANT PCR STAT 10/26/2022 4:47 AM EDT HIV 1/2 ANTIBODY/ANTIGEN SCREEN WITH REFLEX TO HIV I/II DIFFERENTIATION STAT 10/26/2022 4:47 AM EDT from Last 3 Months or Most Recently Relevant to Health Maintenance Results * HIV 1 & 2 Antibody/Antigen Screen (10/26/2022 4:47 AM EDT) HIV 1 & 2 Antibody/Antigen Screen Non Reactive Non Reactive 10/26/2022 5:42 AM EDT [facility] Comment:Screening for HIV 1 & 2 antibodies, and P24 antigen is NONREACTIVE. No confirmatory testing is required. Blood Venous blood specimen / Unknown Venipuncture / Unknown 10/26/2022 4:47 AM EDT 10/26/2022 5:00 AM EDT Stephanie Garcia MD LAB BLOOD ORDERABLES Final Resu lt Performing Organization Address City/[facility]/ZIP Co de Phone Number [facility] [address] [place] [address] * Hepatitis C Antibody - ED (10/26/2022 4:47 AM EDT) Hepatitis C Antibody Negative Negative 10/26/2022 6:28 AM EDT [facility] Blood Venous blood specimen / Unknown Venipuncture / Unknown 10/26/2022 4:47 AM EDT 10/26/2022 5:00 AM EDT Stephanie Garcia MD LAB BLOOD ORDERABLES Final Resu lt Performing Organization Address City/[facility]/ZIP Co de Phone Number [facility] [address] [place] [address] from Last 3 Months or Most Recently Relevant to Health Maintenance Insurance MEDICAID Advance Directives * Full Code (Latest Code Status on File) Date Activated Date Inactivated Comments 10/26/2022 4:39 AM 10/28/2022 8:25 PM Question Answer Comments Patient has decision-making capacity? Yes Care Teams Field Radio Operator Relationship Specialty Start Date End Date Erik Montana MD [address] [place] [address] PCP - General 10/25/22
== END 2025-02-12 23:59 ==
LOC: LAB.DROPOF 02-13 10:19
PROVIDERS: PCP Internal Medicine; Visit Provider Student in an Organized Health Care Education/Training Program
DX: J06.9 Acute upper respiratory infection, unspecified (principal)
CPT/HCPCS: 87631